=== PATIENT | female | born 1940 | race Caucasian/White ===

== ENCOUNTER 2016-09-14 00:20 | Observation (INO) ==
[2016-09-14] MEDS ORDERED: LORazepam 1 MG TABLET PO ONE (01:17)
[2016-09-14] MEDS ORDERED: NITROFURANTOIN SR 100 MG CAPSULE PO ONE (01:19)
[2016-09-14 02:15] LABS: Basophils # (Auto) 0 K/mcL (0.0-0.3); Basophils % (Auto) 0.4 % (0.0-2.0); Eosinophils # (Auto) 0.1 K/mcL (0.0-0.7); Eosinophils % (Auto) 0.9 % (0.0-7.0); Lymphocytes # (Auto) 2.2 K/mcL (1.5-4.8); Lymphocytes % (Auto) 21.6 % (15.5-49.0); Mean Cell Volume 89.8 fL (80.0-100.0); Mean Corpuscular HGB Conc 32.2 g/dL (31.0-36.0); Monocytes # (Auto) 0.7 K/mcL (0.1-0.9); Monocytes % (Auto) 7.1 % (1.0-12.0); Platelet Count 280 K/mcL (140-440); RBC 4.88 M/mcL (4.00-5.20); Red Cell Distribution Width 14.2 % (11.5-14.5)
[2016-09-14 02:48] LABS: ALT/SGPT 32 U/l (0-40); Albumin/Globulin Ratio 1.3 (1.0-2.3); Alkaline Phosphatase 65 U/L (39-117); Blood Urea Nitrogen 23 mg/dl (8-23)
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
[2016-09-14] MEDS ORDERED: 0.9 % SODIUM CHLORIDE 1,000 ML IV ONE (03:02)
[2016-09-14] MEDS ORDERED: cefTRIAXone 1 GM in DEXTROSE 5% IN WATER 50 ML IV ONE (03:03)
[2016-09-14 03:07] LABS: Vitamin B12 266.6 pg/ml (243-894)
[2016-09-14] MEDS ORDERED: cefTRIAXone 1 GM in DEXTROSE 5% IN WATER 50 ML IV SCH (03:15)
[2016-09-14] MEDS ORDERED: IOPAMIDOL 100 ML BOTTLE IV ONE (03:55)
[2016-09-14 04:10] LABS: Appearance,Urine HAZY; Bacteria,Urine 0 /hpf (0); Bilirubin,Urine NEG (NEG); Color,Urine YELLOW; Glucose,Urine (UA) NEGATIVE (NEG); Leukocyte Esterase,Urine 25 /uL (NEG); Mucus,Urine MANY /hpf (0); Nitrate,Urine NEG (NEG); Protein,Urine 30 mg/dL (NEG); Urine Blood 0.03 mg/dL (<0.03); Urine Hyaline Cast 1 /lpf (0-2); Urine RBC 2 /hpf (0-1); Urine Squamous Epithelial Cell 7 /hpf (0-4); Urine Transitional Epi Cells < 1 /hpf (0-2); Urine WBC 4 /hpf (0-4); Urobilinogen,Urine NEG (NEG)
[2016-09-14] MEDS: 0.9 % SODIUM CHLORIDE 1,000 ML IV SCH ×5 (04:55→16:47)
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
[2016-09-14] MEDS: LORazepam 2 MG/ML VIAL IV PRN (18:14)
[2016-09-14] MEDS ORDERED: HALOPERIDOL LACTATE 5 MG/ML VIAL IV PRN (18:48)
[2016-09-14] MEDS ORDERED: HALOPERIDOL LACTATE 5 MG/ML VIAL IM ONE (19:11)
[2016-09-14] MEDS ORDERED: HALOPERIDOL LACTATE 5 MG/ML VIAL ONE (19:22)
[2016-09-14] MEDS: HALOPERIDOL LACTATE 5 MG/ML VIAL ONE ×2 (19:29→20:51)
[2016-09-14] MEDS: OLANZapine 5 MG TABLET PO SCH (22:59)
[2016-09-15] MEDS: OLANZapine 5 MG TABLET PO SCH ×2 (08:37→21:06)
[2016-09-15] MEDS: 0.9 % SODIUM CHLORIDE 1,000 ML IV SCH ×4 (09:02→18:49)
[2016-09-15] MEDS: cefTRIAXone 1 GM in DEXTROSE 5% IN WATER 50 ML IV SCH (09:29)
--- NOTE | 2016-09-15 09:48 | Internal Med Progress Note ---
Medical - PN: Subj Patient information: Note initiated : 09/15/16 at 9:46 am Service Date, if different from initiated Date: [] Patient: Kerrie Randolph 76 y/o F admitted on 09/14/16 for Altered Mental status, UTI, Dehydration. Chief Complaint: [] Interval history: 09/14-patient admitted with dementia induced psychosis/agitation requiring antipsychotics. Admitted as observation as family unable to take care of patient. Significant episodes of agitated psychosis and violent behavior overnight requiring haloperidol. 09/15-patient alert oriented and very tearful about events last night. Family at bedside. Discussed treatment plan and oral antipsychotic and monitoring for additional 24 hours. Family and patient agreeable plan. The patient does not respond to conventional antipsychotics, she will require psychiatrist evaluation. - Constitutional Vitals: Vital Signs Temp Pulse Resp BP Pulse Ox 98.9 F 99 H 16 144/86 96 09/15/16 07:35 09/15/16 07:35 09/15/16 07:35 09/15/16 07:35 09/15/16 07:35 Period Temp Pulse Resp BP Sys/Shirley Pulse Ox Last 24 Hr 97.3 F-98.9 F 89-99 16-18 134-151/78-88 95-96 Intake and Output 09/14/16 09/15/16 09/15/16 21:59 05:59 13:59 Intake Total 1420 / 1420 Output Total 1025 / 1025 625 / 625 Balance 395 / 395 -625 / -625 Weight 172 lb Intake & Output: Intake & Output 09/14/16 09/15/16 09/15/16 21:59 05:59 13:59 Intake Total 1420 / 1420 Output Total 1025 / 1025 625 / 625 Balance 395 / 395 -625 / -625 Weight 172 lb Intake: IV 1000 / 1000 Sodium Chloride 0.9% 1, 1000 / 1000 000 ml @ 150 mls/hr IV . Q6H40M [facility] Rx#:[id number] Oral 420 / 420 Output: Void Amount 1025 / 1025 625 / 625 General appearance: no acute distress Exam: alertNo anxiety nonlabored breathing Nondistended abdomen Medical - PN: Obj Da - Labs CBC & Chem 7: 09/14/16 01:30 09/14/16 01:30 Meds: Medications Haloperidol Lactate (Haldol) 0 mg IV Q4HP PRN PRN Reason: ANXIETY/SEDATION Sodium Chloride (Sodium Chloride 0.9%) 1,000 mls @ 150 mls/hr IV .Q6H40M [facility] Last Admin: 09/15/16 09:02 Dose: 150 mls/hr Ceftriaxone Sodium 1 gm/ (Dextrose) 50 mls @ 100 mls/hr IV DAILY [facility] Last Admin: 09/15/16 09:29 Dose: 100 mls/hr Lorazepam (Ativan) 1 mg IV Q2-4HP PRN PRN Reason: Agitation Last Admin: 09/14/16 18:14 Dose: 1 mg Olanzapine (Zyprexa) 5 mg PO HS [facility] Last Admin: 09/15/16 08:37 Dose: 5 mg Medical - PN: A/P - Time Spent With Patient Total time spent is greater than 50% in coordination of care (as documented) at patient's floor/unit and/or counseling patient: 15 - 24 minutes (1) Psychosis Status: Acute Assessment and plan: * psychosis- Secondary to underlying dementia with hallucinations and agitation. Responding well to antipsychotics including Zyprexa. Continue observation Plan * Conventional antipsychotics * Monitor for 24 hours * if not responding will need psychiatrist consult Current Visit: Yes Medical - PN: Qual - VTE Deep Vein Thrombosis/Pulmonary Embolism Present on Admission: No
--- NOTE | 2016-09-15 12:33 | Cat Scan Report ---
History: Altered mental status with Increased confusion and loss of coordination Findings: The brain was imaged before and after intravenous nonionic contrast. There is mild cerebral atrophy, most apparent in the frontal lobes. There is no evidence of mass, hemorrhage, infarct or abnormal enhancing lesion. The ventricles are normal in size allowing for the atrophy. There is no abnormal extra-axial fluid collection. There are few scattered calcified plaques in the cavernous portions of both internal carotids. The mastoids are clear. Impression: Normal exam for patient's age Interpreted and Authenticated by: Cristiano Aleman 09/15/16
[2016-09-15] MEDS: OLANZapine 2.5 MG TABLET PO ONE ×2 (20:39→21:59)
[2016-09-15] MEDS: LORazepam 2 MG/ML VIAL IV PRN (20:46)
[2016-09-15] MEDS ORDERED: HALOPERIDOL LACTATE 5 MG/ML VIAL IM ONE (21:05)
[2016-09-16] MEDS: 0.9 % SODIUM CHLORIDE 1,000 ML IV SCH ×4 (06:01→22:29)
--- NOTE | 2016-09-16 09:21 | Internal Med Progress Note ---
Medical - PN: Subj Patient information: Note initiated : 09/16/16 at 9:18 am Service Date, if different from initiated Date: [] Patient: Kerrie Randolph 76 y/o F admitted on 09/14/16 for Altered Mental Status, UTI, Dehydration. Chief Complaint: [] Interval history: 09/14-patient admitted with dementia induced psychosis/agitation requiring antipsychotics. Admitted as observation as family unable to take care of patient. Significant episodes of agitated psychosis and violent behavior overnight requiring haloperidol. 09/15-patient alert oriented and very tearful about events last night. Family at bedside. Discussed treatment plan and oral antipsychotic and monitoring for additional 24 hours. Family and patient agreeable plan. The patient does not respond to conventional antipsychotics, she will require psychiatrist evaluation. 09/16-Significant sundowning/agitation and violent behavior requiring Haldol. however this morning patient is pleasant and appropriate. Very tearful realizing how she acted last evening. She is very concerned about her family and her behavior visit she has no control. case management arranging discharge coordination to psych facility including [facility] consult - Constitutional Vitals: Vital Signs Temp Pulse Resp BP Pulse Ox 98.6 F 83 20 186/79 98 09/16/16 07:36 09/16/16 07:36 09/16/16 07:36 09/16/16 07:36 09/16/16 07:36 Period Temp Pulse Resp BP Sys/Shirley Pulse Ox Last 24 Hr 97.6 F-98.8 F 80-88 16-24 158-186/79-90 95-98 Intake and Output 09/15/16 09/16/16 09/16/16 21:59 05:59 13:59 Intake Total 1050 / 1050 100 / 100 Output Total 200 / 200 150 / 150 150 / 150 Balance 850 / 850 -50 / -50 -150 / -150 Weight 172 lb 8 oz Intake & Output: Intake & Output 09/15/16 09/16/16 09/16/16 21:59 05:59 13:59 Intake Total 1050 / 1050 100 / 100 Output Total 200 / 200 150 / 150 150 / 150 Balance 850 / 850 -50 / -50 -150 / -150 Weight 172 lb 8 oz Intake: IV 1000 / 1000 Sodium Chloride 0.9% 1, 1000 / 1000 000 ml @ 150 mls/hr IV . Q6H40M [facility] Rx#:[id number] Oral 50 / 50 100 / 100 Output: Void Amount 200 / 200 150 / 150 150 / 150 Other: Meal Dinner Percent of Meal Consumed 5 Feeding Ability Assist with Tray Set Up # Voids 1 1 # Bowel Movements 1 Medical - PN: Obj Da - Labs CBC & Chem 7: 09/14/16 01:30 09/14/16 01:30 Meds: Medications Haloperidol Lactate (Haldol) 0 mg IV Q4HP PRN PRN Reason: ANXIETY/SEDATION Sodium Chloride (Sodium Chloride 0.9%) 1,000 mls @ 150 mls/hr IV .Q6H40M [facility] Last Admin: 09/16/16 06:01 Dose: Not Given Ceftriaxone Sodium 1 gm/ (Dextrose) 50 mls @ 100 mls/hr IV DAILY [facility] Last Admin: 09/15/16 09:29 Dose: 100 mls/hr Lorazepam (Ativan) 1 mg IV Q2-4HP PRN PRN Reason: Agitation Last Admin: 09/15/16 20:46 Dose: 1 mg Olanzapine (Zyprexa) 5 mg PO HS [facility] Last Admin: 09/15/16 21:06 Dose: Not Given Medical - PN: A/P - Time Spent With Patient Total time spent is greater than 50% in coordination of care (as documented) at patient's floor/unit and/or counseling patient: 15 - 24 minutes (1) Psychosis Status: Acute Assessment and plan: * 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 on observation. Case management coordinating psych facility transfer Plan * continue antipsychotics * discharge planning per case management Current Visit: Yes Medical - PN: Qual - VTE Deep Vein Thrombosis/Pulmonary Embolism Present on Admission: No
[2016-09-16] MEDS: cefTRIAXone 1 GM in DEXTROSE 5% IN WATER 50 ML IV SCH (09:48)
[2016-09-16] MEDS ORDERED: OLANZapine 5 MG TABLET PO SCH (16:00)
[2016-09-16] MEDS: LORazepam 2 MG/ML VIAL IV PRN (21:25)
[2016-09-17] MEDS: 0.9 % SODIUM CHLORIDE 1,000 ML IV SCH (05:56)
[2016-09-17] MEDS: LORazepam 2 MG/ML VIAL IV PRN (06:36)
[2016-09-17] MEDS ORDERED: LORazepam 2 MG/ML VIAL IV PRN (07:06)
[2016-09-17] MEDS ORDERED: QUEtiapine 25 MG TABLET PO SCH (09:00)
--- NOTE | 2016-09-17 10:15 | Internal Med Progress Note ---
Medical - PN: Subj Patient information: Note initiated : 09/17/16 at 10:13 am Service Date, if different from initiated Date: [] Patient: Kerrie Randolph 76 y/o F admitted on 09/14/16 for Altered Mental Status, UTI, Dehydration. Chief Complaint: [] Interval history: 09/14-patient admitted with dementia induced psychosis/agitation requiring antipsychotics. Admitted as observation as family unable to take care of patient. Significant episodes of agitated psychosis and violent behavior overnight requiring haloperidol. 09/15-patient alert oriented and very tearful about events last night. Family at bedside. Discussed treatment plan and oral antipsychotic and monitoring for additional 24 hours. Family and patient agreeable plan. The patient does not respond to conventional antipsychotics, she will require psychiatrist evaluation. 09/16-Significant sundowning/agitation and violent behavior requiring Haldol. however this morning patient is pleasant and appropriate. Very tearful realizing how she acted last evening. She is very concerned about her family and her behavior visit she has no control. case management arranging discharge coordination to psych facility including [facility] psychiatric consult 09/17- case management and coordinating safe discharge planning. Patient continues to experience sundowning with agitation and aggressive behavior requiring antipsychotics. Family at bedside. No overnight events including fever chills except for period of hallucination and anxiety along with aggressive behavior - Constitutional Vitals: Vital Signs Temp Pulse Resp BP Pulse Ox 98.2 F 89 20 151/88 93 09/17/16 02:46 09/17/16 02:46 09/17/16 02:46 09/17/16 02:46 09/17/16 02:46 Period Temp Pulse Resp BP Sys/Shirley Pulse Ox Last 24 Hr 97.7 F-98.7 F 76-89 16-20 144-173/86-109 92-97 Intake and Output 09/16/16 09/17/16 09/17/16 21:59 05:59 13:59 Intake Total 1000 / 1000 1150 / 1150 Output Total 325 / 325 800 / 800 450 / 450 Balance 675 / 675 350 / 350 -450 / -450 Weight 173 lb Intake & Output: Intake & Output 09/16/16 09/17/16 09/17/16 21:59 05:59 13:59 Intake Total 1000 / 1000 1150 / 1150 Output Total 325 / 325 800 / 800 450 / 450 Balance 675 / 675 350 / 350 -450 / -450 Weight 173 lb Intake: IV 1000 / 1000 1000 / 1000 Sodium Chloride 0.9% 1, 1000 / 1000 1000 / 1000 000 ml @ 150 mls/hr IV . Q6H40M [facility] Rx#:[id number] Oral 150 / 150 Output: Void Amount 325 / 325 800 / 800 450 / 450 General appearance: no acute distress Exam: sitting on chair comfortably nonlabored breathing Sedated No agitation Medical - PN: Obj Da - Labs CBC & Chem 7: 09/14/16 01:30 09/14/16 01:30 Meds: Medications Haloperidol Lactate (Haldol) 0 mg IV Q4HP PRN PRN Reason: ANXIETY/SEDATION Sodium Chloride (Sodium Chloride 0.9%) 1,000 mls @ 150 mls/hr IV .Q6H40M [facility] Last Admin: 09/17/16 05:56 Dose: 150 mls/hr Lorazepam (Ativan) 1 - 2 mg IV Q4-6HP PRN PRN Reason: ANXIETY/SEDATION Last Admin: 09/17/16 07:20 Dose: 1 mg Olanzapine (Zyprexa) 5 mg PO DAILY@1600 [facility] Last Admin: 09/16/16 16:34 Dose: 5 mg Quetiapine Fumarate (Seroquel) 25 mg PO DAILY [facility] Last Admin: 09/17/16 10:07 Dose: 25 mg Medical - PN: A/P - Time Spent With Patient Total time spent is greater than 50% in coordination of care (as documented) at patient's floor/unit and/or counseling patient: 15 - 24 minutes (1) Psychosis Status: Acute Assessment and plan: * 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 case management coordinating safe discharge plan Plan * continue antipsychotics * discharge planning per case management Current Visit: Yes Medical - PN: Qual - VTE Deep Vein Thrombosis/Pulmonary Embolism Present on Admission: No
[2016-09-17] MEDS ORDERED: HALOPERIDOL LACTATE 5 MG/ML VIAL IM ONE (15:05)
[2016-09-17] MEDS: OLANZapine 5 MG TABLET PO SCH ×2 (15:11)
[2016-09-17 19:02] LABS: Appearance,Urine CLEAR; Bilirubin,Urine NEG (NEG); Color,Urine COLORLESS; Glucose,Urine (UA) NEGATIVE (NEG); Leukocyte Esterase,Urine NEG /uL (NEG); Nitrate,Urine NEG (NEG); Protein,Urine NEG (NEG); Specific Gravity,Urine 1.006 (1.000-1.035); Urine Blood NEG mg/dL (<0.03); Urobilinogen,Urine NEG (NEG)
[2016-09-18] MEDS ORDERED: OLANZapine 5 MG TABLET PO ONE (11:02)
[2016-09-18] MEDS: OLANZapine 5 MG TABLET PO SCH (11:04)
--- NOTE | 2016-09-18 11:06 | Discharge Summary ---
Medical - DS: Prov Patient information: Note initiated : 09/18/16 at 11:02 am Service Date, if different from initiated Date: [] Patient: Kerrie Randolph 76 y/o F admitted on 09/14/16 for Altered Mental Status, UTI, Dehydration. Chief Complaint: [] Date of admission: 09/14/16 03:54 Discharge date: 09/18/16 Primary care physician: [f_Reg Prim Care Provider] Medical - DS: Meds - Discharge Medications Prescriptions: OLANZapine [Zyprexa Zydis] 5 mg PO PRN PRN #14 tab.rapdis PRN Reason: Agitation OLANZapine [Zyprexa] 10 mg PO DAILY@1600 #30 tablet Active and Home Medications: Home Medications OLANZapine [Zyprexa Zydis] 5 mg PO PRN PRN #14 tab.rapdis 09/18/16 [Rx Last Taken Unknown] OLANZapine [Zyprexa] 10 mg PO DAILY@1600 #30 tablet 09/18/16 [Rx Last Taken Unknown] Medical - DS: Hosp Hospital course: DISCHARGE DIAGNOSIS * 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 significant improvement. Patient discharging home on Zyprexa 10 mg daily along with 5 mg oral dissolvable as needed. BRIEF HOSPITAL COURSE Mrs. Randolph is a 76 year old female with advanced dementia induced hallucinosis/ psychosis 09/14-patient admitted with dementia induced psychosis/agitation requiring antipsychotics. Admitted as observation as family unable to take care of patient. Significant episodes of agitated psychosis and violent behavior overnight requiring haloperidol. 09/15- Patient alert oriented and very tearful about events last night. Family at bedside. Discussed treatment plan and oral antipsychotic and monitoring for additional 24 hours. Family and patient agreeable plan. The patient does not respond to conventional antipsychotics, she will require psychiatrist evaluation. 09/16-Significant sundowning/agitation and violent behavior requiring Haldol. however this morning patient is pleasant and appropriate. Very tearful realizing how she acted last evening. She is very concerned about her family and her behavior visit she has no control. case management arranging discharge coordination to psych facility including [facility] consult 09/17- Case management and coordinating safe discharge planning. Patient continues to experience sundowning with agitation and aggressive behavior requiring antipsychotics. Family at bedside. No overnight events including fever chills except for period of hallucination and anxiety along with aggressive behavior 09/18- Case discussed with Dr. Bharath Poe [facility] for management of dementia induced psychosis. He recommended Zyprexa 10 mg once a day along with dissolvable Zyprexa 5 mg as needed. Discharge diagnosis: . - Time Spent with Patient Total time spent providing and/or coordinating discharge services: Greater than 30 minutes Medical - DS: Exam - Constitutional Vitals: Vital Signs Temp Pulse Resp BP BP Pulse Ox 09/18/16 07:16 99.0 F 09/18/16 06:41 100.2 F H 20 165/96 92 09/18/16 04:27 110/62 09/18/16 04:04 70 91/54 92/60 94 09/18/16 03:40 98.3 F 95 H 18 152/86 94 09/17/16 16:00 98.4 F 09/17/16 15:30 100.2 F H Intake and Output 09/17/16 09/18/16 09/18/16 21:59 05:59 13:59 Intake Total 100 / 100 240 / 240 Output Total 901 / 901 676 / 676 200 / 200 Balance -901 / -901 -576 / -576 40 / 40 Intake: Oral 100 / 100 240 / 240 Output: Void Amount 900 / 900 675 / 675 200 / 200 # of times incontinent of / 1 / urine Other: Meal Breakfast Percent of Meal Consumed 100% Feeding Ability Assist with Tray Set Up # Voids 1 1 Weight 167 lb Medical - DS: Data Labs on day of discharge: Labs from last 24 hours 09/17/16 16:46 Urine Color Colorless Urine Appearance Clear Urine pH 6.0 Ur Specific [place] 1.006 Urine Protein Neg Urine Glucose (UA) Negative Urine Ketones 20 A Urine Occult Blood Neg Urine Nitrate Neg Urine Bilirubin Neg Urine Urobilinogen Neg Ur Leukocyte Esterase Neg Ur Culture Indicated? No Medical - DS: A/P - Patient/Caregiver Discharge Instructions Activity: increase activity as tolerated Diet: Regular Diet Additional Instructions: use 10 mg Zyprexa daily use 5 mg Zydis daily as needed for episodes of psychosis/agitation Reviewed the risk and side effect profile including cardiac dysrhythmias, dystonia and other extrapyramidal side effects with family. However this time benefits outweigh the risk given profound agitation and violent behavior risking patient's own life and risk of injuries to others. Also the need for law enforcement intervention to combat aggressive behavior. Prescriptions: OLANZapine [Zyprexa Zydis] 5 mg PO PRN PRN #14 tab.rapdis PRN Reason: Agitation OLANZapine [Zyprexa] 10 mg PO DAILY@1600 #30 tablet - Problem Maintenance (1) Psychosis Status: Acute - Follow up Plan Follow up with: Mary Gonzalez ARNP [Nurse Practitioner] - 09/23/16 11:20 am (Please check in at 11:00 am for a 11:20 appointment. Bring your photo ID and insurance cards.) Disposition: Home, Self-Care Prognosis: Undetermined Rehab Potential: Undetermined I certify that the patient requires SNF services: Yes (none available) Overall status at discharge: patient is progressing back to baseline Medical - DS: Qual - VTE Deep Vein Thrombosis/Pulmonary Embolism Present on Admission: No
[2016-09-18] MEDS ORDERED: PNEUMOCOCCAL 23-VAL P-SAC VAC 0.5 ML VIAL IM ONE (11:45)
== END 2016-09-18 11:50 | disposition home or self-care (01) ==
LOC: MEDSUR 00:20 → ED 00:20 → MEDSUR 04:02
PROVIDERS: ADMIT Internal Medicine; ATTEND Internal Medicine

== ENCOUNTER 2016-10-14 17:24 | Observation (INO) ==
--- NOTE | 2016-10-14 18:01 | Emergency Department Note ---
Weakness HPI - General Chief complaint: Weakness Stated complaint: Weakness Time Seen by Provider: 10/14/16 17:48 Source: family Mode of arrival: wheelchair Limitations: altered mental status - History of Present Illness HPI Narrative: [age]-year-old female who was admitted on 09/14 dementia and psychosis. Was put on Zyprexa. [place] been at a cabin for 5 days she has not been eating and drinking well is running a low-grade temperature 100.4 apparently she has a UTI and is being treated on Bactrim for this UTI. Is been having increased weakness the past 5 days. She is unable to give us a good history she denies urgency frequency or dysuria denies abdominal pain denies nausea vomiting but unsure how accurate this. Her current temperature is 100.7 - Related Data Previous Rx's Medication Instructions Recorded OLANZapine [Zyprexa Zydis] 5 mg PO PRN PRN #14 tab.rapdis 09/18/16 OLANZapine [Zyprexa] 10 mg PO DAILY@1600 #30 tablet 09/18/16 Allergies Allergy/AdvReac Type Severity Reaction Status Date / Time No Known Drug Allergies Allergy Verified 10/14/16 17:27 Review of Systems All systems ED: reviewed and negative except as stated. Constitutional: Reports: fever, chills Eyes: Denies: eye pain ENT ED: Denies: ear pain Cardiovascular: Denies: chest pain Respiratory: Denies: cough Gastrointestinal: Denies: abdominal pain, nausea, vomiting Genitourinary: Denies: urgency, dysuria Psychiatric: Reports: other (Dementia with psychosis) Endocrine: Reports: fatigue Hematological/Lymphatic: Denies: easy bleeding Allergic/Immunologic: Denies: facial swelling Past Medical History - Past Medical History Medical history: Reports: dementia, other (previous UTI, glaucoma, depression) Surgical history ED: Reports: no surgical history - Social History Alcohol use: Reports: None Drug use: Reports: none Physical Exam - General Limitations: altered mental status (Dementia) General appearance: in no apparent distress - Head Head exam: atraumatic - Eye Eye exam: Present: normal appearance, PERRL - ENT ENT exam: normal exam - Neck Neck exam: Present: normal inspection - Chest Chest inspection: Present: normal inspection - Respiratory Respiratory exam: Present: normal lung sounds bilaterally. Absent: respiratory distress - Cardiovascular Cardiovascular exam: Present: regular rate, normal rhythm - Abdominal Exam Abdominal exam: Present: soft, normal bowel sounds. Absent: distention, tenderness, guarding, rebound - Extremities Exam Extremities exam: Present: normal inspection, full ROM - Back Exam Back exam: Present: normal inspection, full ROM - Neurological Exam Neurological exam: Present: other (Dementia) - Psychiatric Psychiatric exam: Present: flat affect Course Vital Signs Temperature 100.7 F H 10/14/16 17:25 Pulse Rate 102 H 10/14/16 17:25 Respiratory Rate 20 10/14/16 17:25 Blood Pressure 158/85 10/14/16 17:25 Pulse Oximetry (%) 93 10/14/16 17:25 Temperature 99.0 F H 10/18/16 00:00 Pulse Rate 105 H 10/18/16 00:00 Respiratory Rate 18 10/18/16 04:00 Blood Pressure 143/82 10/18/16 00:00 Pulse Oximetry (%) 93 10/18/16 00:00 Weakness - Lab Data Result diagrams: 10/18/16 05:30 10/18/16 05:30 Lab Results 10/14/16 10/14/16 10/14/16 Range/Units 17:50 17:50 17:50 WBC 13.0 H (4.5-11.0) K/mcL RBC 4.85 (4.00-5.20) M/mcL Hgb 14.2 (12.0-15.0) g/dL Hct 43.3 (36.0-48.0) % MCV 89.2 (80.0-100.0) fL MCH 29.3 (26.0-34.0) pg MCHC 32.8 (31.0-36.0) g/dL RDW 14.1 (11.5-14.5) % Plt Count 220 (140-440) K/mcL MPV 8.8 (7.4-10.4) fL Total Counted 100 Seg Neutrophils % 66 (38-78) % Band Neutrophils % Not Reportable Lymphocytes % 26 (15-49) % Monocytes % (Manual) 8 (1-12) % Platelet Estimate Normal (NORMAL) RBC Morphology Normal (NORMAL) VBG Lactic Acid 1.3 (0.5-2.2) mmol/L Sodium 137 (133-145) mmol/L Potassium 3.9 (3.3-5.1) mmol/L Chloride 100 (96-108) mmol/L Carbon Dioxide 18 L (22-30) mmol/L Anion Gap 19.0 H (8-16) BUN 18 (8-23) mg/dl Creatinine 0.8 (0.6-1.1) mg/dl GFR Calculation 72 Glucose 131 H (70-105) mg/dL Calcium 9.4 (8.6-10.4) mg/dl Total Bilirubin 0.5 (0.0-1.0) mg/dL AST 54 H (0-37) U/l ALT 74 H (0-40) U/l Alkaline Phosphatase 129 H (39-117) U/L Total Protein 7.4 (5.9-8.4) gm/dL Albumin 3.4 (3.2-5.2) gm/dL Globulin 4.0 H (2.2-3.7) gm/dL Albumin/Globulin Ratio 0.9 L (1.0-2.3) Procalcitonin (<0.10) ng/mL Urine Color Urine Appearance Urine pH (5.0-9.0) Ur Specific [place] (1.000-1.035) Urine Protein (NEG) mg/dL Urine Glucose (UA) (NEG) mg/dL Urine Ketones (NEG) mg/dL Urine Occult Blood (<0.03) mg/dL Urine Nitrate (NEG) Urine Bilirubin (NEG) mg/dL Urine Urobilinogen (NEG) mg/dL Ur Leukocyte Esterase (NEG) /uL Urine RBC (0-1) /hpf Urine WBC (0-4) /hpf Ur Squamous Epith Cells (0-4) /hpf Urine Bacteria (0) /hpf Urine Mucus (0) /hpf Ur Culture Indicated? 10/14/16 10/14/16 Range/Units 19:20 21:34 WBC (4.5-11.0) K/mcL RBC (4.00-5.20) M/mcL Hgb (12.0-15.0) g/dL Hct (36.0-48.0) % MCV (80.0-100.0) fL MCH (26.0-34.0) pg MCHC (31.0-36.0) g/dL RDW (11.5-14.5) % Plt Count (140-440) K/mcL MPV (7.4-10.4) fL Total Counted Seg Neutrophils % (38-78) % Band Neutrophils % Lymphocytes % (15-49) % Monocytes % (Manual) (1-12) % Platelet Estimate (NORMAL) RBC Morphology (NORMAL) VBG Lactic Acid (0.5-2.2) mmol/L Sodium (133-145) mmol/L Potassium (3.3-5.1) mmol/L Chloride (96-108) mmol/L Carbon Dioxide (22-30) mmol/L Anion Gap (8-16) BUN (8-23) mg/dl Creatinine (0.6-1.1) mg/dl GFR Calculation Glucose (70-105) mg/dL Calcium (8.6-10.4) mg/dl Total Bilirubin (0.0-1.0) mg/dL AST (0-37) U/l ALT (0-40) U/l Alkaline Phosphatase (39-117) U/L Total Protein (5.9-8.4) gm/dL Albumin (3.2-5.2) gm/dL Globulin (2.2-3.7) gm/dL Albumin/Globulin Ratio (1.0-2.3) Procalcitonin 0.06 (<0.10) ng/mL Urine Color [place] Urine Appearance Clear Urine pH 5.0 (5.0-9.0) Ur Specific [place] 1.029 (1.000-1.035) Urine Protein 30 A (NEG) mg/dL Urine Glucose (UA) Negative (NEG) mg/dL Urine Ketones 20 A (NEG) mg/dL Urine Occult Blood Neg (<0.03) mg/dL Urine Nitrate Neg (NEG) Urine Bilirubin Neg (NEG) mg/dL Urine Urobilinogen Neg (NEG) mg/dL Ur Leukocyte Esterase Neg (NEG) /uL Urine RBC 2 H (0-1) /hpf Urine WBC < 1 (0-4) /hpf Ur Squamous Epith Cells < 1 (0-4) /hpf Urine Bacteria 0 (0) /hpf Urine Mucus Few (0) /hpf Ur Culture Indicated? No Disposition Clinical Impression: Weakness Disposition: Xfer As Inpt ([facility]) Condition: Undetermined
[2016-10-14 18:17] LABS: Mean Cell Volume 89.2 fL (80.0-100.0); Mean Corpuscular HGB Conc 32.8 g/dL (31.0-36.0); Mean Corpuscular Hemoglobin 29.3 pg (26.0-34.0); Platelet Count 220 K/mcL (140-440); RBC 4.85 M/mcL (4.00-5.20); Red Cell Distribution Width 14.1 % (11.5-14.5)
[2016-10-14 18:39] LABS: ALT/SGPT 74 U/l (0-40); Albumin 3.4 gm/dL (3.2-5.2); Albumin/Globulin Ratio 0.9 (1.0-2.3); Alkaline Phosphatase 129 U/L (39-117); Blood Urea Nitrogen 18 mg/dl (8-23)
--- NOTE | 2016-10-14 18:48 | XRay Report ---
CLINICAL INFORMATION: Cough COMPARISON: 08/16/2016 FINDINGS: Heart size, mediastinal pulmonary vessels are normal. Lungs are clear. No effusions. IMPRESSION: Negative Interpreted and Authenticated by: Dennis Rubin 10/14/16
[2016-10-14 19:20] LABS: Lymphocytes % 26 % (15-49); Monocytes % (Manual) 8 % (1-12); Platelet Estimate NORMAL (NORMAL); RBC Morphology NORMAL (NORMAL); Segmented Neutrophils % 66 % (38-78)
[2016-10-14 19:51] LABS: Appearance,Urine CLEAR; Bacteria,Urine 0 /hpf (0); Bilirubin,Urine NEG (NEG); Color,Urine AMBER; Glucose,Urine (UA) NEGATIVE (NEG); Leukocyte Esterase,Urine NEG /uL (NEG); Mucus,Urine FEW /hpf (0); Nitrate,Urine NEG (NEG); Protein,Urine 30 mg/dL (NEG); Specific Gravity,Urine 1.029 (1.000-1.035); Urine Blood NEG mg/dL (<0.03); Urine RBC 2 /hpf (0-1); Urine Squamous Epithelial Cell < 1 /hpf (0-4); Urine WBC < 1 /hpf (0-4); Urobilinogen,Urine NEG (NEG)
[2016-10-14] MEDS ORDERED: LEVOFLOXACIN 500 MG/100 ML BAG IV ONE (20:02)
[2016-10-14] MEDS ORDERED: NALOXONE HCL 0.4 MG/ML VIAL IV PRN (22:16)
[2016-10-14] MEDS ORDERED: ONDANSETRON 4 MG/2 ML VIAL IV PRN (22:16)
[2016-10-14] MEDS ORDERED: MAGNESIUM HYDROXIDE 30 ML ORAL.SUSP PO PRN (22:16)
[2016-10-14] MEDS ORDERED: oxyCODONE HCL 5 MG TABLET PO PRN (22:16)
[2016-10-14] MEDS ORDERED: ACETAMINOPHEN 325 MG TABLET PO PRN (22:16)
--- NOTE | 2016-10-14 22:37 | Internal Med History&Physical ---
Medical - H&P: [facility] Patient information: Note initiated : 10/14/16 at 10:28 pm Service Date, if different from initiated Date: [] Patient: Kerrie Randolph 76 y/o F admitted on 10/14/16 for Weakness. Chief Complaint: [] History of present illness: Ms. Randolph is a 76 year old female with h/o advanced dementia, who presents to the ER today brought in by her for failure to thrive, not eating well or drinking well. the patient was admitted last month to this hospital with dementia and psychosis , with UTI, she was started on zyprxa and her psychosis improved, but the patient is very difficult to care for, she wakes up in the middle of the night and usually cannot hold a conversation, her is helping her with her activities of dailyu living. She has not been eating well since discharge, hwoever her food intake declined significantly over last 1 week, therefore the patient was brought to the hospital. The patient answers some questions but is only aoox1, and does not answer questions appropriately History is provided by her . The patient seems pleasant and obeys some commands. the patient was being treated for UTI by her PCP as outpatient In the ER the patient was noted to be febrile with a white count, cxr is negativef, ua is neg, mildly abnl LFT noted, Patient is being admitted to the hospital for further management and eventual placement, as her is unable to take care of her. He was initially interested about palliative care, but at present wants the patient to be full code. ROS unobtainable: due to mental status Medical - H&P: PMH Medical history: Medical History (Last Updated 10/14/16 @ 22:09 by Meche Pulliam) UTI (urinary tract infection) (Acute) Dehydration (Acute) Dementia (Acute) Psychosis (Acute) Pertinent family history: Mother with dementia Social history: lives with , no tobacco no drugs no etoh Medical - H&P: Meds Home Medications Medication Instructions Recorded Confirmed Type OLANZapine [Zyprexa Zydis] 5 mg PO PRN PRN #14 tab.rapdis 09/18/16 10/14/16 Rx OLANZapine [Zyprexa] 10 mg PO DAILY@1600 #30 tablet 09/18/16 10/14/16 Rx Allergies Allergy/AdvReac Type Severity Reaction Status Date / Time No Known Drug Allergies Allergy Verified 10/14/16 17:27 Medical - H&P: Exam - Constitutional Vitals: Temp Pulse Resp BP Pulse Ox 98.6 F 90 20 162/97 93 10/14/16 22:00 10/14/16 22:00 10/14/16 22:00 10/14/16 22:00 10/14/16 22:00 Exam: GENERAL: The patient is a well-developed, well-nourished in no apparent distress. Is alert and oriented x1. VITAL SIGNS: Reviewed and as noted elsewhere. HEENT: Head is normocephalic and atraumatic. Extraocular muscles are intact. Pupils are equal, round, and reactive to light. Nares appeared normal. Mouth appears any without lesions. Mucous membranes are dry. NECK: Normal to inspection, Supple, No lymphadenopathy or thyromegaly. LUNGS: Air entry equal on both sides, no wheezing, crackles or rhonchi noted. No accessory muscles of respiration HEART: Regular rate and rhythm normal, S1 and S2 heard, no Gallop, S3 or Rub Noted, No Gross murmur heard. ABDOMEN: Soft, nontender, and nondistended. Positive bowel sounds. No hepatosplenomegaly was noted. EXTREMITIES: No cyanosis, clubbing, rash, lesions or edema. NEUROLOGIC: Cranial nerves II through XII are grossly intact. Motor and Sensory System Grossly Intact PSYCHIATRIC: inappropriate talk, tangential thought. SKIN: No ulceration or wounds noted, No jaundice, No rash noted. Medical - H&P: Reslt - Labs CBC & Chem 7: 10/14/16 17:50 10/14/16 17:50 Medical - H&P: A/P - Narrative A/P Narrative: a/p Dementia with psychosis: stable on zyprexam UTI: On ROcephin for now, Urine and blood cultures pending. UA is neg Failuire to thrive, ST PT OT eval, patient needs to improve oral intake to have any meaning ful chance of recovery, hopefully she will turn around. Poor prognosis if not able to resume oral intake explained to . Abnl LFt: Abdomen is soft, but will get [facility] liver to r/o GB pathology for her present condition. DVT hep sq Diet regular fall precautions full code.
[2016-10-14] MEDS: DEXTROSE 5%-1/2NS W/20MEQ KCL 1,000 ML IV SCH (23:02)
[2016-10-14] MEDS: 0.9 % SODIUM CHLORIDE 10 ML SYRINGE IV SCH (23:04)
[2016-10-14] MEDS ORDERED: cefTRIAXone 1 GM VIAL ONE (23:11)
[2016-10-14] MEDS: cefTRIAXone 1 GM in DEXTROSE 5% IN WATER 50 ML IV SCH (23:21)
[2016-10-14] MEDS: HEPARIN 5,000 UNIT/ML VIAL SQ SCH (23:28)
[2016-10-15] MEDS: cefTRIAXone 1 GM in DEXTROSE 5% IN WATER 50 ML IV SCH ×2 (01:31→08:41)
[2016-10-15] MEDS: 0.9 % SODIUM CHLORIDE 10 ML SYRINGE IV SCH ×3 (05:21→21:58)
[2016-10-15 06:42] LABS: Basophils # (Auto) 0.1 K/mcL (0.0-0.3); Basophils % (Auto) 0.5 % (0.0-2.0); Eosinophils # (Auto) 0.2 K/mcL (0.0-0.7); Eosinophils % (Auto) 2.1 % (0.0-7.0); Granulocytes % (Auto) 69.6 % (38.0-78.0); Lymphocytes # (Auto) 1.6 K/mcL (1.5-4.8); Lymphocytes % (Auto) 16.5 % (15.5-49.0); Mean Cell Volume 89.2 fL (80.0-100.0); Mean Corpuscular HGB Conc 33.5 g/dL (31.0-36.0); Mean Corpuscular Hemoglobin 29.9 pg (26.0-34.0); Monocytes # (Auto) 1.1 K/mcL (0.1-0.9); Monocytes % (Auto) 11.3 % (1.0-12.0); Platelet Count 187 K/mcL (140-440); RBC 4.21 M/mcL (4.00-5.20)
[2016-10-15 06:58] LABS: ALT/SGPT 63 U/l (0-40); Albumin 2.7 gm/dL (3.2-5.2); Albumin/Globulin Ratio 0.8 (1.0-2.3); Alkaline Phosphatase 112 U/L (39-117); Bilirubin,Direct < 0.2 mg/dL (0.0-0.3); Blood Urea Nitrogen 11 mg/dl (8-23); Gamma Glutamyl Transpeptidase 121 U/L (5-36); Magnesium 1.7 mg/dL (1.6-2.5); Uric Acid 4.2 mg/dL (2.5-8.0)
[2016-10-15] MEDS: HEPARIN 5,000 UNIT/ML VIAL SQ SCH ×2 (08:40→20:41)
--- NOTE | 2016-10-15 09:47 | Internal Med Progress Note ---
Medical - PN: Subj Patient information: Note initiated : 10/15/16 at 9:34 am Service Date, if different from initiated Date: [] Patient: Kerrie Randolph 76 y/o F admitted on 10/14/16 for Weakness. Chief Complaint: [] Interval history: Ms. Randolph is a 76 year old female with h/o advanced dementia, who presents to the ER today brought in by her for failure to thrive, not eating well or drinking well. the patient was admitted last month to this hospital with dementia and psychosis, with UTI, she was started on zyprxa and her psychosis improved, but the patient is very difficult to care for, she wakes up in the middle of the night and usually cannot hold a conversation, her is helping her with her activities of dailyu living. She has not been eating well since discharge, however her food intake declined significantly over last 1 week , therefore the patient was brought to the hospital. The patient answers some questions but is only aoox1, and does not answer questions appropriately History is provided by her . The patient seems pleasant and obeys some commands. the patient was being treated for UTI by her PCP as outpatient In the ER the patient was noted to be febrile with a white count, cxr is negative , ua is neg , mildly abnl LFT noted, Patient is being admitted to the hospital for further management and eventual placement, as her is unable to take care of her. He was initially interested about palliative care, but at present wants the patient to be full code. 10/15: Patient seen examined, sitting comfortably in chair, answers to question, denies any complaints, at bedside. Labs reviewed, wbc improved, lft improved, patient to get [facility] live today OT/ PT and ST eval today, to consider for rehab, no fever since yesterday. Pertinent ROS: unable due to mental status but declines any complaints. - Constitutional Vitals: Vital Signs Temp Pulse Resp BP Pulse Ox 98 F 85 20 134/90 94 10/15/16 06:31 10/15/16 06:53 10/15/16 06:31 10/15/16 06:31 10/15/16 06:53 Period Temp Pulse Resp BP Sys/Shirley Pulse Ox Last 24 Hr 97.8 F-98.6 F 83-90 20-22 134-162/77-97 93-95 Intake and Output 10/14/16 10/15/16 10/15/16 21:59 05:59 13:59 Intake Total 40 / 40 Output Total 650 / 650 600 / 600 Balance -650 / -650 -560 / -560 Weight 167 lb Intake & Output: Intake & Output 10/14/16 10/15/16 10/15/16 21:59 05:59 13:59 Intake Total 40 / 40 Output Total 650 / 650 600 / 600 Balance -650 / -650 -560 / -560 Weight 167 lb Intake: Oral 40 / 40 Output: Urine Catheter Amount 650 / 650 600 / 600 Other: Meal Breakfast Percent of Meal Consumed 5 Feeding Ability Assist with Tray Set Up Exam: Constitutional; Afebrile, cooperative, alert, not in distress. Eyes- No icterus, , No periorbital swelling Ears- Ext ear normal, hearing normal to conversation. Neck- Midline trachea, supple Respiratory system: Air Entry equal on both sides, No crackles or wheezing, no rhonchi. CVS- Rate rhythm regular, S1,S2 heard, no gallop, no rub. Abdomen- Soft nontender abdomen, no organomegaly, no tenderness, no guarding or rigidity, MACHINE SET UP- AOOx1, moving all extremities, no gross focal deficit noted. Psych: obeys commands, answers to question is inappropriate, Medical - PN: Obj Da - Labs CBC & Chem 7: 10/15/16 05:30 10/15/16 05:40 Labs: Abnormal Lab Results 10/15/16 10/15/16 05:40 05:30 [place] # 1.1 H Carbon Dioxide 16 L Glucose 116 H Calcium 8.4 L GGT 121 H AST 49 H ALT 63 H Albumin 2.7 L Albumin/Globulin Ratio 0.8 L Meds: Medications Acetaminophen (Tylenol) 650 mg PO Q6HP PRN PRN Reason: PAIN/FEVER > 101 Heparin Sodium (Porcine) (Heparin) 5,000 unit SQ Q12 [facility] Last Admin: 10/15/16 08:40 Dose: 5,000 unit Ceftriaxone Sodium 1 gm/ (Dextrose) 50 mls @ 100 mls/hr IV Q24H [facility] Last Admin: 10/15/16 08:41 Dose: 100 mls/hr Potassium Chloride/Dextrose/Sod Cl (Dextrose 5%-1/2ns W/20meq Kcl) 1,000 mls @ 84 mls/hr IV .[id number] [facility] Last Admin: 10/14/16 23:02 Dose: 84 mls/hr Magnesium Hydroxide (Milk Of Magnesia) 30 ml PO DAILYP PRN PRN Reason: Constipation Naloxone HCl (Narcan) 0.1 mg IV Q2MIN PRN PRN Reason: Opiate Reversal Olanzapine (Zyprexa) 10 mg PO DAILY@1600 [facility] Olanzapine (Zyprexa) 5 mg PO Q8HP PRN PRN Reason: AGITATION Ondansetron HCl (Zofran) 4 mg IV Q6HP PRN PRN Reason: Nausea And Vomiting Oxycodone HCl (Roxicodone) 5 mg PO Q4HP PRN PRN Reason: Pain Senna (Senokot) 2 tab PO HS [facility] Sodium Chloride (Saline Flush) 10 ml IV Q8 [facility] Last Admin: 10/15/16 05:21 Dose: Not Given Medical - PN: A/P - Time Spent With Patient Total time spent is greater than 50% in coordination of care (as documented) at patient's floor/unit and/or counseling patient: - Narrative A/P Narrative: A/P Dementia with psychosis: stable on zyprexa continue same, UTI: On ROcephin for now, await microbiology Failuire to thrive, ST PT OT eval, Abnl LFt: Tolerating po diet well, await liver usg. DVT hep sq Diet regular fall precautions full code. Medical - PN: Qual - VTE Deep Vein Thrombosis/Pulmonary Embolism Present on Admission: No
[2016-10-15] MEDS: OLANZapine 5 MG TABLET PO PRN (10:20)
[2016-10-15] MEDS: DEXTROSE 5%-1/2NS W/20MEQ KCL 1,000 ML IV SCH ×3 (10:23→23:25)
[2016-10-15] MEDS: OLANZapine 5 MG TABLET PO SCH (17:17)
--- NOTE | 2016-10-15 17:38 | Ultrasound Report ---
CLINICAL INFORMATION: Abnormal liver function tests COMPARISON: None. FINDINGS: The liver is mildly echogenic compatible with fatty change or other global parenchymal process. No focal hepatic lesion. A solitary 370 stone is present in the gallbladder. Common bile is normal - 5 mm. Pancreas is unremarkable. IMPRESSION: 1. Hyperechoic liver most compatible with fatty change or other global parenchymal process. 2. Solitary 3 cm gallstone. A large gallstone does significantly increased risk for future gallbladder carcinoma development. Consider general surgery referral if clinically appropriate Interpreted and Authenticated by: Dennis Rubin 10/15/16
[2016-10-15] MEDS: SENNOSIDES 1 TABLET PO SCH (20:48)
[2016-10-16] MEDS: 0.9 % SODIUM CHLORIDE 10 ML SYRINGE IV SCH ×3 (06:31→22:10)
[2016-10-16 07:27] LABS: Basophils # (Auto) 0 K/mcL (0.0-0.3); Basophils % (Auto) 0.5 % (0.0-2.0); Eosinophils # (Auto) 0.3 K/mcL (0.0-0.7); Eosinophils % (Auto) 3.4 % (0.0-7.0); Granulocytes % (Auto) 61.8 % (38.0-78.0); Lymphocytes # (Auto) 2.3 K/mcL (1.5-4.8); Mean Cell Volume 89.6 fL (80.0-100.0); Mean Corpuscular HGB Conc 33.6 g/dL (31.0-36.0); Mean Corpuscular Hemoglobin 30.1 pg (26.0-34.0); Monocytes # (Auto) 1.1 K/mcL (0.1-0.9); Monocytes % (Auto) 11.3 % (1.0-12.0); Platelet Count 229 K/mcL (140-440); RBC 4.29 M/mcL (4.00-5.20); Red Cell Distribution Width 14.3 % (11.5-14.5)
[2016-10-16 07:54] LABS: ALT/SGPT 61 U/l (0-40); Albumin 3.3 gm/dL (3.2-5.2); Alkaline Phosphatase 118 U/L (39-117); Bilirubin,Direct < 0.2 mg/dL (0.0-0.3); Blood Urea Nitrogen 8 mg/dl (8-23); Gamma Glutamyl Transpeptidase 126 U/L (5-36); Magnesium 1.9 mg/dL (1.6-2.5); Uric Acid 4.1 mg/dL (2.5-8.0)
[2016-10-16] MEDS: cefTRIAXone 1 GM in DEXTROSE 5% IN WATER 50 ML IV SCH (09:46)
[2016-10-16] MEDS: DEXTROSE 5%-1/2NS W/20MEQ KCL 1,000 ML IV SCH ×2 (09:50→22:10)
[2016-10-16] MEDS: HEPARIN 5,000 UNIT/ML VIAL SQ SCH ×2 (11:06→20:46)
--- NOTE | 2016-10-16 11:07 | Internal Med Progress Note ---
Medical - PN: Subj Patient information: Note initiated : 10/16/16 at 11:05 am Service Date, if different from initiated Date: [] Patient: Kerrie Randolph 76 y/o F admitted on 10/14/16 for Weakness. Chief Complaint: [] Interval history: Ms. Randolph is a 76 year old female with h/o advanced dementia, who presents to the ER today brought in by her for failure to thrive, not eating well or drinking well. the patient was admitted last month to this hospital with dementia and psychosis, with UTI, she was started on zyprxa and her psychosis improved, but the patient is very difficult to care for, she wakes up in the middle of the night and usually cannot hold a conversation, her is helping her with her activities of dailyu living. She has not been eating well since discharge, however her food intake declined significantly over last 1 week , therefore the patient was brought to the hospital. The patient answers some questions but is only aoox1, and does not answer questions appropriately History is provided by her . The patient seems pleasant and obeys some commands. the patient was being treated for UTI by her PCP as outpatient In the ER the patient was noted to be febrile with a white count, cxr is negative , ua is neg , mildly abnl LFT noted, Patient is being admitted to the hospital for further management and eventual placement, as her is unable to take care of her. He was initially interested about palliative care, but at present wants the patient to be full code. 10/15: Patient seen examined, sitting comfortably in chair, answers to question, denies any complaints, at bedside. Labs reviewed, wbc improved, lft improved, patient to get [facility] live today OT/ PT and ST eval today, to consider for rehab, no fever since yesterday. 10/16: Pt seen examined, no acute overnight events, tolerating some po diet, no longer febrile, culture are neg for urine and blood so far. Patient does answer questions and denies any acute issues. Her meal consumption so far has been 10- 15 50 %. Labs reviewed, LFT mildly abnl, wbc back to normal. USG liver shows 3cm gall bladder stone. Pt does not endorse any symptoms. PT unable to direct patient towards any meaning ful activity. Pertinent ROS: Denies headache, dizziness Denies chest pain, palpitations Denies cough or shortness of breath Denies abdominal pain, nausea or vomiting. Pt says no to all complaints, not sure if has comprehension. - Constitutional Vitals: Vital Signs Temp Pulse Resp BP Pulse Ox 98.6 F 83 16 124/73 93 10/16/16 07:43 10/16/16 04:00 10/16/16 07:43 10/16/16 07:43 10/16/16 07:43 Period Temp Pulse Resp BP Sys/Shirley Pulse Ox Last 24 Hr 97.8 F-98.6 F 83-97 16-20 124-144/73-86 91-98 Intake and Output 10/15/16 10/16/16 10/16/16 21:59 05:59 13:59 Intake Total 987 / 987 1115 / 1115 Output Total 875 / 875 Balance -875 / -875 987 / 987 1115 / 1115 Weight 167 lb Intake & Output: Intake & Output 10/15/16 10/16/16 10/16/16 21:59 05:59 13:59 Intake Total 987 / 987 1115 / 1115 Output Total 875 / 875 Balance -875 / -875 987 / 987 1115 / 1115 Weight 167 lb Intake: IV 987 / 987 875 / 875 Dextrose 5%-1/2Ns W/20Meq 987 / 987 875 / 875 KCl 1,000 ml @ 84 mls/hr IV .[id number] [facility] Rx#: [id number] Oral 0 / 0 240 / 240 Output: Urine Catheter Amount 700 / 700 Void Amount 175 / 175 Other: Meal Dinner Breakfast Percent of Meal Consumed 25% 50% # Voids 1 Exam: Constitutional; Afebrile, cooperative, alert, not in distress. Eyes- No icterus, , No periorbital swelling Ears- Ext ear normal, hearing normal to conversation. Neck- Midline trachea, supple Respiratory system: Air Entry equal on both sides, No crackles or wheezing, no rhonchi. CVS- Rate rhythm regular, S1,S2 heard, no gallop, no rub. 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 Medical - PN: Obj Da - Labs CBC & Chem 7: 10/16/16 05:07 10/16/16 05:07 Labs: Abnormal Lab Results 10/16/16 10/16/16 10/15/16 05:07 05:07 05:40 [place] # 1.1 H Carbon Dioxide 16 L 16 L Anion Gap 17.0 H Glucose 116 H Calcium 8.4 L GGT 126 H 121 H AST 39 H 49 H ALT 61 H 63 H Alkaline Phosphatase 118 H Albumin 2.7 L Albumin/Globulin Ratio 0.8 L Triglycerides 177 H 10/15/16 05:30 [place] # 1.1 H Carbon Dioxide Anion Gap Glucose Calcium GGT AST ALT Alkaline Phosphatase Albumin Albumin/Globulin Ratio Triglycerides Meds: Medications Acetaminophen (Tylenol) 650 mg PO Q6HP PRN PRN Reason: PAIN/FEVER > 101 Heparin Sodium (Porcine) (Heparin) 5,000 unit SQ Q12 [facility] Last Admin: 10/15/16 20:41 Dose: 5,000 unit Potassium Chloride/Dextrose/Sod Cl (Dextrose 5%-1/2ns W/20meq Kcl) 1,000 mls @ 84 mls/hr IV .[id number] [facility] Last Admin: 10/16/16 09:50 Dose: 84 mls/hr Magnesium Hydroxide (Milk Of Magnesia) 30 ml PO DAILYP PRN PRN Reason: Constipation Naloxone HCl (Narcan) 0.1 mg IV Q2MIN PRN PRN Reason: Opiate Reversal Olanzapine (Zyprexa) 10 mg PO DAILY@1600 [facility] Last Admin: 10/15/16 17:17 Dose: 10 mg Olanzapine (Zyprexa) 5 mg PO Q8HP PRN PRN Reason: AGITATION Last Admin: 10/15/16 10:20 Dose: 5 mg Omeprazole (Prilosec) 20 mg PO ACB [facility] Ondansetron HCl (Zofran) 4 mg IV Q6HP PRN PRN Reason: Nausea And Vomiting Oxycodone HCl (Roxicodone) 5 mg PO Q4HP PRN PRN Reason: Pain Senna (Senokot) 2 tab PO HS [facility] Last Admin: 10/15/16 20:48 Dose: Not Given Sodium Chloride (Saline Flush) 10 ml IV Q8 [facility] Last Admin: 10/16/16 06:31 Dose: Not Given Medical - PN: A/P - Time Spent With Patient Total time spent is greater than 50% in coordination of care (as documented) at patient's floor/unit and/or counseling patient: - Narrative A/P Narrative: A/P Dementia with psychosis: stable on zyprexa continue same, UTI: s/p treatment, cultures neg, d/c rocephin, wbc normal, remains afebrile. Failuire to thrive, : ST recs regular diet, PT unable to work with pt, Pt not eating full shamika, start on PPI Abnl LFt: USG shows large gall stone, patient denies any symptoms, but has dementia and poor oral intake, not sure if Gall bladder dyspepsia is playing any role, I discussed this with Dr Mahoney who has agreed to have a look at the patient. DVT hep sq Diet regular fall precautions full code. Medical - PN: Qual - VTE Deep Vein Thrombosis/Pulmonary Embolism Present on Admission: No
--- NOTE | 2016-10-16 16:46 | General Surgery Consult Note ---
History of Present Illness Patient information: Note initiated : 10/16/16 at 4:42 pm Service Date, if different from initiated Date: [] Patient: Kerrie Randolph 76 y/o F admitted on 10/14/16 for Weakness. Chief Complaint: [] Consult date: 10/16/16 Reason for consult: abdominal pain History of present illness: 76-year-old f with history of dementia and psychosis who is readmitted with elevated white count and history of increasing anorexia and failure to thrive. She has been treated by the hospitalist service and she has no other pathology. Upper abdominal ultrasound was done and it shows large gallstone in the gallbladder. On closer questioning with the family available the patient states that she stopped eating because eating bere abdominal pain. She points to the upper abdomen but is not very specific. Due to her dementia is difficult to determine if she has associated nausea but she does complain of fullness whenever she eats. It is felt that her problem is related to biliary colic and she will benefit from cholecystectomy. I discussed this with her as sons and her and they agree that she should proceed with cholecystectomy. 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 Never tobacco use Never alcohol use Never substance abuse Medications and Allergies Home Medications Medication Instructions Recorded Confirmed Type OLANZapine [Zyprexa Zydis] 5 mg PO PRN PRN #14 tab.rapdis 09/18/16 10/14/16 Rx OLANZapine [Zyprexa] 10 mg PO DAILY@1600 #30 tablet 09/18/16 10/14/16 Rx Allergies Allergy/AdvReac Type Severity Reaction Status Date / Time No Known Drug Allergies Allergy Verified 10/14/16 17:27 Exam Temp Pulse Resp BP Pulse Ox 98 F 83 18 134/87 92 10/16/16 15:14 10/16/16 04:00 10/16/16 15:14 10/16/16 15:14 10/16/16 15:14 - General physical appearance well developed, well nourished, no distress, other (the patient is only oriented to person) - Eyes PERRL, normal ocular movement. negative: icteric - ENT normal pinna, normal nares, normal mucosa, no hearing loss, no congestion - Head Head exam IM: Present: atraumatic, normocephalic - Neck no masses, no bruits, trachea midline, no lymphadectomy, no venous distension - Cardiovascular Cardiovascular exam IM: Present: normal rate and rhythm, RRR, +S1, +S2. Absent : JVD - Respiratory normal expansion, normal respiratory effort, clear to percussion, clear to auscultation - Abdomen Abdomen: Present: soft, non tender, bowel sounds Hernia: Present: none - Integumentary Present: no rash, no growths, no abnormal pigmentation - Neurologic Present: normal coordination, normal sensation - Musculoskeletal Present: other (unsteady gait and sta) - Psychiatric Present: oriented to person, speech is normal, other (moderately severe dementia ) Results - Labs 10/16/16 05:07 10/16/16 05:07 Abnormal lab results 10/16/16 10/16/16 Range/Units 05:07 05:07 [place] # 1.1 H (0.1-0.9) K/mcL Carbon Dioxide 16 L (22-30) mmol/L Anion Gap 17.0 H (8-16) GGT 126 H (5-36) U/L AST 39 H (0-37) U/l ALT 61 H (0-40) U/l Alkaline Phosphatase 118 H (39-117) U/L Triglycerides 177 H (<150) mg/dl Diabetes panel 10/16/16 Range/Units 05:07 Sodium 137 (133-145) mmol/L Potassium 4.3 (3.3-5.1) mmol/L Chloride 104 (96-108) mmol/L Carbon Dioxide 16 L (22-30) mmol/L BUN 8 (8-23) mg/dl Creatinine 0.7 (0.6-1.1) mg/dl Glucose 104 (70-105) mg/dL Calcium 9.1 (8.6-10.4) mg/dl AST 39 H (0-37) U/l ALT 61 H (0-40) U/l Alkaline Phosphatase 118 H (39-117) U/L Total Protein 6.7 (5.9-8.4) gm/dL Albumin 3.3 (3.2-5.2) gm/dL Triglycerides 177 H (<150) mg/dl Calcium panel 10/16/16 Range/Units 05:07 Calcium 9.1 (8.6-10.4) mg/dl Phosphorus 3.1 (2.7-4.5) mg/dL Albumin 3.3 (3.2-5.2) gm/dL Pituitary panel 10/16/16 Range/Units 05:07 Sodium 137 (133-145) mmol/L Potassium 4.3 (3.3-5.1) mmol/L Chloride 104 (96-108) mmol/L Carbon Dioxide 16 L (22-30) mmol/L BUN 8 (8-23) mg/dl Creatinine 0.7 (0.6-1.1) mg/dl Glucose 104 (70-105) mg/dL Calcium 9.1 (8.6-10.4) mg/dl Adrenal panel 10/16/16 Range/Units 05:07 Sodium 137 (133-145) mmol/L Potassium 4.3 (3.3-5.1) mmol/L Chloride 104 (96-108) mmol/L Carbon Dioxide 16 L (22-30) mmol/L BUN 8 (8-23) mg/dl Creatinine 0.7 (0.6-1.1) mg/dl Glucose 104 (70-105) mg/dL Calcium 9.1 (8.6-10.4) mg/dl Total Bilirubin 0.4 (0.0-1.0) mg/dL AST 39 H (0-37) U/l ALT 61 H (0-40) U/l Alkaline Phosphatase 118 H (39-117) U/L Total Protein 6.7 (5.9-8.4) gm/dL Albumin 3.3 (3.2-5.2) gm/dL All other labs normal. Assessment and Plan (1) Cholelithiasis and cholecystitis without obstruction patient's family members were counseled for cholecystectomy and it will be done tomorrow. She has been started on efoxin every 8 hours. Status: Acute (2) Dementia Status: Acute Qualifiers: Dementia type: unspecified type Dementia behavioral disturbance: with behavioral disturbance Qualified Code(s): F03.91 - Unspecified dementia with behavioral disturbance (3) Psychosis Status: Acute
[2016-10-16] MEDS: OLANZapine 5 MG TABLET PO SCH (17:28)
[2016-10-16] MEDS: cefOXitin 2 GM in DEXTROSE 5% IN WATER 50 ML IV SCH ×2 (17:30→22:10)
[2016-10-16] MEDS: SENNOSIDES 1 TABLET PO SCH (20:46)
[2016-10-16] MEDS: OLANZapine 5 MG TABLET PO PRN (22:07)
[2016-10-17] MEDS: 0.9 % SODIUM CHLORIDE 10 ML SYRINGE IV SCH ×2 (05:11→16:30)
[2016-10-17] MEDS: cefOXitin 2 GM in DEXTROSE 5% IN WATER 50 ML IV SCH ×3 (05:11→23:40)
[2016-10-17 06:01] LABS: Basophils # (Auto) 0.1 K/mcL (0.0-0.3); Basophils % (Auto) 0.5 % (0.0-2.0); Eosinophils # (Auto) 0.4 K/mcL (0.0-0.7); Eosinophils % (Auto) 4.3 % (0.0-7.0); Granulocytes % (Auto) 60.5 % (38.0-78.0); Lymphocytes # (Auto) 2.5 K/mcL (1.5-4.8); Lymphocytes % (Auto) 24.4 % (15.5-49.0); Mean Cell Volume 89.6 fL (80.0-100.0); Mean Corpuscular HGB Conc 33.1 g/dL (31.0-36.0); Mean Corpuscular Hemoglobin 29.7 pg (26.0-34.0); Monocytes % (Auto) 10.3 % (1.0-12.0); Platelet Count 283 K/mcL (140-440); RBC 4.38 M/mcL (4.00-5.20)
[2016-10-17] MEDS: OLANZapine 5 MG TABLET PO PRN ×2 (06:40→08:55)
[2016-10-17 06:41] LABS: ALT/SGPT 49 U/l (0-40); Albumin 3.2 gm/dL (3.2-5.2); Albumin/Globulin Ratio 0.9 (1.0-2.3); Alkaline Phosphatase 110 U/L (39-117); Bilirubin,Direct < 0.2 mg/dL (0.0-0.3); Blood Urea Nitrogen 6 mg/dl (8-23); Gamma Glutamyl Transpeptidase 113 U/L (5-36); Magnesium 1.8 mg/dL (1.6-2.5); Uric Acid 4.1 mg/dL (2.5-8.0)
[2016-10-17] MEDS ORDERED: PANTOPRAZOLE 40 MG TABLET PO SCH (07:30)
[2016-10-17] MEDS: HEPARIN 5,000 UNIT/ML VIAL SQ SCH (08:27)
[2016-10-17] MEDS: DEXTROSE 5%-1/2NS W/20MEQ KCL 1,000 ML IV SCH ×3 (10:06→17:04)
--- NOTE | 2016-10-17 10:40 | Internal Med Progress Note ---
Medical - PN: Subj Patient information: Note initiated : 10/17/16 at 10:37 am Service Date, if different from initiated Date: [] Patient: Kerrie Randolph 76 y/o F admitted on 10/14/16 for Weakness. Chief Complaint: [] Interval history: Ms. Randolph is a 76 year old female with h/o advanced dementia, who presents to the ER today brought in by her for failure to thrive, not eating well or drinking well. the patient was admitted last month to this hospital with dementia and psychosis, with UTI, she was started on zyprxa and her psychosis improved, but the patient is very difficult to care for, she wakes up in the middle of the night and usually cannot hold a conversation, her is helping her with her activities of dailyu living. She has not been eating well since discharge, however her food intake declined significantly over last 1 week , therefore the patient was brought to the hospital. The patient answers some questions but is only aoox1, and does not answer questions appropriately History is provided by her . The patient seems pleasant and obeys some commands. the patient was being treated for UTI by her PCP as outpatient In the ER the patient was noted to be febrile with a white count, cxr is negative , ua is neg , mildly abnl LFT noted, Patient is being admitted to the hospital for further management and eventual placement, as her is unable to take care of her. He was initially interested about palliative care, but at present wants the patient to be full code. 10/15: Patient seen examined, sitting comfortably in chair, answers to question, denies any complaints, at bedside. Labs reviewed, wbc improved, lft improved, patient to get [facility] live today OT/ PT and ST eval today, to consider for rehab, no fever since yesterday. 10/16: Pt seen examined, no acute overnight events, tolerating some po diet, no longer febrile, culture are neg for urine and blood so far. Patient does answer questions and denies any acute issues. Her meal consumption so far has been 10- 15 50 %. Labs reviewed, LFT mildly abnl, wbc back to normal. USG liver shows 3cm gall bladder stone. Pt does not endorse any symptoms. PT unable to direct patient towards any meaning ful activity. 10/17 Pt seen examined, no acute overnight issues, she denies any complaints. Patient seen by surgery, the patient did report to the surgeon that she does have abdominal pain when we try to feed her, given her dementia and poor history , its feasible that she may be having abdominal pain due to Gall stone disease which is limiting her intake. She is scheduled for cholecystectomy today. Family in agreement with the plan. Pertinent ROS: demented but denies any complaints Denies headache, dizziness Denies chest pain, palpitations Denies cough or shortness of breath Denies abdominal pain, nausea or vomiting. - Constitutional Vitals: Vital Signs Temp Pulse Resp BP Pulse Ox 98.4 F 88 20 100/72 93 10/17/16 08:00 10/17/16 04:00 10/17/16 08:00 10/17/16 08:00 10/17/16 08:00 Period Temp Pulse Resp BP Sys/Shirley Pulse Ox Last 24 Hr 97.6 F-98.4 F 78-96 16-20 100-150/67-87 92-94 Intake and Output 10/16/16 10/17/16 10/17/16 21:59 05:59 13:59 Intake Total 1170 / 1170 100 / 100 Output Total 750 / 750 650 / 650 75 / 75 Balance 420 / 420 -550 / -550 -75 / -75 Weight 163 lb Intake & Output: Intake & Output 10/16/16 10/17/16 10/17/16 21:59 05:59 13:59 Intake Total 1170 / 1170 100 / 100 Output Total 750 / 750 650 / 650 75 / 75 Balance 420 / 420 -550 / -550 -75 / -75 Weight 163 lb Intake: IV 1050 / 1050 100 / 100 Dextrose 5%-1/2Ns W/20Meq 1000 / 1000 KCl 1,000 ml @ 84 mls/hr IV .[id number] [facility] Rx#: [id number] Mefoxin 2 gm In Dextrose 50 / 50 100 / 100 5% in Water 50 ml @ 100 mls/hr IV Q8H [facility] Rx#: [id number] Oral 120 / 120 0 / 0 Output: Void Amount 750 / 750 650 / 650 75 / 75 Other: # Voids 1 1 Exam: Constitutional; Afebrile, cooperative, alert, not in distress. Eyes- No icterus, , No periorbital swelling Ears- Ext ear normal, hearing normal to conversation. Neck- Midline trachea, supple Respiratory system: Air Entry equal on both sides, No crackles or wheezing, no rhonchi. CVS- Rate rhythm regular, S1,S2 heard, no gallop, no rub. 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 Medical - PN: Obj Da - Labs CBC & Chem 7: 10/17/16 04:19 10/17/16 04:19 Labs: Abnormal Lab Results 10/17/16 10/17/16 10/16/16 04:19 04:19 05:07 [place] # 1.0 H Carbon Dioxide 18 L 16 L Anion Gap 17.0 H BUN 6 L Glucose 128 H Calcium GGT 113 H 126 H AST 39 H ALT 49 H 61 H Alkaline Phosphatase 118 H Albumin Albumin/Globulin Ratio 0.9 L Triglycerides 217 H 177 H 10/16/16 10/15/16 10/15/16 05:07 05:40 05:30 [place] # 1.1 H 1.1 H Carbon Dioxide 16 L Anion Gap BUN Glucose 116 H Calcium 8.4 L GGT 121 H AST 49 H ALT 63 H Alkaline Phosphatase Albumin 2.7 L Albumin/Globulin Ratio 0.8 L Triglycerides Meds: Medications Acetaminophen (Tylenol) 650 mg PO Q6HP PRN PRN Reason: PAIN/FEVER > 101 Last Admin: 10/17/16 09:01 Dose: 650 mg Heparin Sodium (Porcine) (Heparin) 5,000 unit SQ Q12 [facility] Last Admin: 10/17/16 08:27 Dose: Not Given Potassium Chloride/Dextrose/Sod Cl (Dextrose 5%-1/2ns W/20meq Kcl) 1,000 mls @ 84 mls/hr IV .[id number] [facility] Last Admin: 10/17/16 10:06 Dose: Not Given Cefoxitin Sodium 2 gm/ (Dextrose) 50 mls @ 100 mls/hr IV Q8H [facility] Last Infusion: 10/17/16 05:41 Dose: Infused Magnesium Hydroxide (Milk Of Magnesia) 30 ml PO DAILYP PRN PRN Reason: Constipation Naloxone HCl (Narcan) 0.1 mg IV Q2MIN PRN PRN Reason: Opiate Reversal Olanzapine (Zyprexa) 10 mg PO DAILY@1600 [facility] Last Admin: 10/16/16 17:28 Dose: 10 mg Olanzapine (Zyprexa) 5 mg PO Q8HP PRN PRN Reason: AGITATION Last Admin: 10/17/16 08:55 Dose: 5 mg Ondansetron HCl (Zofran) 4 mg IV Q6HP PRN PRN Reason: Nausea And Vomiting Oxycodone HCl (Roxicodone) 5 mg PO Q4HP PRN PRN Reason: Pain Pantoprazole Sodium (Protonix) 40 mg PO QAMAC [facility] Last Admin: 10/17/16 08:27 Dose: Not Given Senna (Senokot) 2 tab PO HS [facility] Last Admin: 10/16/16 20:46 Dose: 2 tab Sodium Chloride (Saline Flush) 10 ml IV Q8 [facility] Last Admin: 10/17/16 05:11 Dose: Not Given Medical - PN: A/P - Time Spent With Patient Total time spent is greater than 50% in coordination of care (as documented) at patient's floor/unit and/or counseling patient: - Narrative A/P Narrative: A/P Dementia with psychosis: stable on zyprexa continue same, she had some outburst overnight,but settled now. UTI: s/p treatment, cultures neg, d/c rocephin, wbc normal, remains afebrile. monitor. Failuire to thrive, : ST recs regular diet, PT unable to work with pt, Pt not eating full shamika, start on PPI, likely poor appetite due to gall stone. Gallstone disease: plan for cholecystetomy today. DVT hep sq Diet regular fall precautions full code. Medical - PN: Qual - VTE Deep Vein Thrombosis/Pulmonary Embolism Present on Admission: No
[2016-10-17] MEDS ORDERED: GLYCOPYRROLATE 0.2 MG/ML VIAL IV ONE (11:45)
[2016-10-17] MEDS ORDERED: ROCURONIUM 10 MG/ML ML IV ONE (11:45)
[2016-10-17] MEDS ORDERED: PROPOFOL 200 MG/20 ML VIAL IV ONE (11:45)
[2016-10-17] MEDS ORDERED: MIDAZOLAM 2 MG/2 ML VIAL IV ONE (11:45)
[2016-10-17] MEDS ORDERED: LIDOCAINE HCL/PF 100 MG/5 ML SYRINGE IV ONE (11:45)
[2016-10-17] MEDS ORDERED: DEXAMETHASONE 10 MG/ML VIAL IV ONE (11:45)
[2016-10-17] MEDS ORDERED: NEOSTIGMINE 1 MG/ML VIAL IV ONE (11:45)
[2016-10-17] MEDS ORDERED: fentaNYL 100 MCG/2 ML VIAL IV ONE (11:45)
[2016-10-17] MEDS ORDERED: ONDANSETRON 4 MG/2 ML VIAL IV ONE (11:45)
[2016-10-17] MEDS ORDERED: PHENYLEPHRINE 10 MG/ML VIAL IV ONE (11:45)
[2016-10-17] MEDS ORDERED: ePHEDrine 50 MG/ML AMPUL IV ONE (11:45)
[2016-10-17] MEDS ORDERED: LORazepam 0.5 MG TABLET PO PRN ×2 (11:53→14:25)
[2016-10-17] MEDS ORDERED: HYDROmorphone 2 MG/ML SYRINGE IV PRN (12:19)
[2016-10-17] MEDS ORDERED: diphenhydrAMINE 50 MG/ML VIAL IV PRN (12:19)
[2016-10-17] MEDS ORDERED: METOPROLOL TARTRATE 5 MG/5 ML VIAL IV PRN (12:19)
[2016-10-17] MEDS ORDERED: NALOXONE HCL 0.4 MG/ML VIAL IV PRN (12:19)
[2016-10-17] MEDS ORDERED: PROMETHAZINE 25 MG/ML VIAL IV PRN (12:19)
[2016-10-17] MEDS ORDERED: BENZOCAINE/MENTHOL 1 LOZENGE PO PRN (12:19)
[2016-10-17] MEDS ORDERED: fentaNYL 100 MCG/2 ML VIAL IV PRN (12:19)
[2016-10-17] MEDS ORDERED: METHOCARBAMOL 1,000 MG/10 ML VIAL IV PRN (12:19)
[2016-10-17] MEDS ORDERED: FLUMAZENIL 0.1 MG/ML ML IV PRN (12:19)
[2016-10-17] MEDS ORDERED: ePHEDrine 50 MG/ML AMPUL IV PRN (12:19)
[2016-10-17] MEDS ORDERED: IPRATROPIUM/ALBUTEROL 3 ML AMPUL.NEB NEB PRN (12:19)
[2016-10-17] MEDS ORDERED: ONDANSETRON 4 MG/2 ML VIAL IV PRN ×2 (12:19→14:25)
[2016-10-17] MEDS ORDERED: ATROPINE SULFATE 0.4 MG/ML VIAL IV PRN (12:19)
[2016-10-17] MEDS ORDERED: MEPERIDINE 25 MG/ML SYRINGE IV PRN (12:19)
[2016-10-17] MEDS ORDERED: LACTATED RINGERS 1,000 ML IV SCH (12:30)
[2016-10-17] MEDS ORDERED: cefOXitin 2 GM in DEXTROSE 5% IN WATER 50 ML IV SCH (13:00)
--- NOTE | 2016-10-17 13:05 | Brief Operative Note ---
Date of procedure: 10/17/16 Pre-op diagnosis: cholelithiasis with cholecystitis Post-op diagnosis: same Procedure: LAPAROSCOPIC CHOLECYSTECTOMY Grafts/Implants: No Anesthesia: GETA Findings: INFLAMED GALLBLADDER WITH LARGE STONES Complications: none Surgeon: Angie Mahoney Estimated blood loss (cc): 10 Specimens Removed/Pathology: other (GALLBLADDER) Condition: stable Disposition: PACU
[2016-10-17] MEDS ORDERED: MAGNESIUM HYDROXIDE 30 ML ORAL.SUSP PO PRN (14:25)
[2016-10-17] MEDS ORDERED: ACETAMINOPHEN 325 MG TABLET PO PRN (14:25)
[2016-10-17] MEDS: ACETAMINOPHEN 1,000 MG/100 ML BOTTLE IV PRN (15:35)
[2016-10-17] MEDS ORDERED: OLANZapine 5 MG TABLET PO SCH ×2 (16:00)
[2016-10-17] MEDS ORDERED: SENNOSIDES 1 TABLET PO SCH (21:00)
[2016-10-18] MEDS: ACETAMINOPHEN 1,000 MG/100 ML BOTTLE IV PRN (00:45)
[2016-10-18] MEDS: DEXTROSE 5%-1/2NS W/20MEQ KCL 1,000 ML IV SCH ×2 (05:04→10:00)
[2016-10-18] MEDS: cefOXitin 2 GM in DEXTROSE 5% IN WATER 50 ML IV SCH ×2 (05:26→12:02)
[2016-10-18 06:29] LABS: Basophils # (Auto) 0 K/mcL (0.0-0.3); Basophils % (Auto) 0 % (0.0-2.0); Eosinophils # (Auto) 0 K/mcL (0.0-0.7); Eosinophils % (Auto) 0 % (0.0-7.0); Granulocytes % (Auto) 86.5 % (38.0-78.0); Lymphocytes # (Auto) 1.1 K/mcL (1.5-4.8); Lymphocytes % (Auto) 8.8 % (15.5-49.0); Mean Cell Volume 88.9 fL (80.0-100.0); Mean Corpuscular HGB Conc 33.9 g/dL (31.0-36.0); Mean Corpuscular Hemoglobin 30.1 pg (26.0-34.0); Monocytes # (Auto) 0.6 K/mcL (0.1-0.9); Monocytes % (Auto) 4.7 % (1.0-12.0); Platelet Count 289 K/mcL (140-440); RBC 4.04 M/mcL (4.00-5.20); Red Cell Distribution Width 13.8 % (11.5-14.5)
[2016-10-18 06:59] LABS: ALT/SGPT 37 U/l (0-40); Albumin/Globulin Ratio 0.9 (1.0-2.3); Alkaline Phosphatase 97 U/L (39-117); Bilirubin,Direct < 0.2 mg/dL (0.0-0.3); Blood Urea Nitrogen 5 mg/dl (8-23); Gamma Glutamyl Transpeptidase 94 U/L (5-36); Magnesium 1.7 mg/dL (1.6-2.5); Uric Acid 4.2 mg/dL (2.5-8.0)
[2016-10-18] MEDS ORDERED: PANTOPRAZOLE 40 MG TABLET PO SCH (07:30)
--- NOTE | 2016-10-18 09:56 | Internal Med Progress Note ---
Medical - PN: Subj Patient information: Note initiated : 10/18/16 at 9:50 am Service Date, if different from initiated Date: [] Patient: Kerrie Randolph 76 y/o F admitted on 10/14/16 for Weakness. Chief Complaint: [] Interval history: Ms. Randolph is a 76 year old female with h/o advanced dementia, who presents to the ER today brought in by her for failure to thrive, not eating well or drinking well. the patient was admitted last month to this hospital with dementia and psychosis, with UTI, she was started on zyprxa and her psychosis improved, but the patient is very difficult to care for, she wakes up in the middle of the night and usually cannot hold a conversation, her is helping her with her activities of dailyu living. She has not been eating well since discharge, however her food intake declined significantly over last 1 week , therefore the patient was brought to the hospital. The patient answers some questions but is only aoox1, and does not answer questions appropriately History is provided by her . The patient seems pleasant and obeys some commands. the patient was being treated for UTI by her PCP as outpatient In the ER the patient was noted to be febrile with a white count, cxr is negative , ua is neg , mildly abnl LFT noted, Patient is being admitted to the hospital for further management and eventual placement, as her is unable to take care of her. He was initially interested about palliative care, but at present wants the patient to be full code. 10/15: Patient seen examined, sitting comfortably in chair, answers to question, denies any complaints, at bedside. Labs reviewed, wbc improved, lft improved, patient to get USG live today OT/ PT and ST eval today, to consider for rehab, no fever since yesterday. 10/16: Pt seen examined, no acute overnight events, tolerating some po diet, no longer febrile, culture are neg for urine and blood so far. Patient does answer questions and denies any acute issues. Her meal consumption so far has been 10- 15 50 %. Labs reviewed, LFT mildly abnl, wbc back to normal. USG liver shows 3cm gall bladder stone. Pt does not endorse any symptoms. PT unable to direct patient towards any meaning ful activity. 10/17 Pt seen examined, no acute overnight issues, she denies any complaints. Patient seen by surgery, the patient did report to the surgeon that she does have abdominal pain when we try to feed her, given her dementia and poor history , its feasible that she may be having abdominal pain due to Gall stone disease which is limiting her intake. She is scheduled for cholecystectomy today. Family in agreement with the plan. 10/18 Pt seen examined, lying in bed comfortably, trying to pet her bedsheet as it were her puppy. She denies any pain, or any acute complaints events from yesterday noted. There was concern regarding burn on the ant abdominal wall due to use of a hot pack yesterday, this am the skin looks back to normal with only few areas of erythema. The patient underwent a successful cholecystectomy yesterday. Pertinent ROS: unable to do ros, but pt denies chest pain, sob, headache dizziness. abdominal pain she says no to every question. - Constitutional Vitals: Vital Signs Temp Pulse Resp BP Pulse Ox 98.4 F 105 H 20 117/74 97 10/18/16 07:34 10/18/16 00:00 10/18/16 07:34 10/18/16 07:34 10/18/16 07:34 Period Temp Pulse Resp BP Sys/Shirley Pulse Ox Last 24 Hr 96.6 F-99.0 F 73-105 12-93 91-149/46-90 91-100 Intake and Output 10/17/16 10/18/16 10/18/16 21:59 05:59 13:59 Intake Total 585 / 585 630 / 630 100 / 100 Output Total 528 / 528 1100 / 1100 325 / 325 Balance 57 / 57 -470 / -470 -225 / -225 Weight 163 lb Intake & Output: Intake & Output 10/17/16 10/18/16 10/18/16 21:59 05:59 13:59 Intake Total 585 / 585 630 / 630 100 / 100 Output Total 528 / 528 1100 / 1100 325 / 325 Balance 57 / 57 -470 / -470 -225 / -225 Weight 163 lb Intake: IV 485 / 485 150 / 150 Dextrose 5%-1/2Ns W/20Meq 335 / 335 0 / 0 KCl 1,000 ml @ 84 mls/hr IV .[id number] [facility] Rx#: [id number] Mefoxin 2 gm In Dextrose 50 / 50 50 / 50 5% in Water 50 ml @ 100 mls/hr IV Q6H [facility] Rx#: [id number] Oral 100 / 100 480 / 480 100 / 100 Output: Urine Catheter Amount 25 / 25 Void Amount 500 / 500 1100 / 1100 325 / 325 # of times incontinent of 3 / 3 urine Other: Meal 4 oz jello, few sips of chicken broth # Voids 75 1 Exam: Constitutional; Afebrile, cooperative, alert, not in distress. Eyes- No icterus, , No periorbital swelling Ears- Ext ear normal, hearing normal to conversation. Neck- Midline trachea, supple Respiratory system: Air Entry equal on both sides, No crackles or wheezing, no rhonchi. CVS- Rate rhythm regular, S1,S2 heard, no gallop, no rub. 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 Medical - PN: Obj Da - Labs CBC & Chem 7: 10/18/16 05:30 10/18/16 05:30 Labs: Abnormal Lab Results 10/18/16 10/18/16 10/17/16 05:30 05:30 04:19 WBC 12.6 H Hct 35.9 L Gran % 86.5 H Lymph % (Auto) 8.8 L Gran # 10.9 H Lymph # 1.1 L Todd # Carbon Dioxide 21 L 18 L Anion Gap BUN 5 L 6 L Glucose 174 H 128 H GGT 94 H 113 H AST ALT 49 H Alkaline Phosphatase Albumin 3.0 L Albumin/Globulin Ratio 0.9 L 0.9 L Triglycerides 217 H 10/17/16 10/16/16 10/16/16 04:19 05:07 05:07 WBC Hct Gran % Lymph % (Auto) Gran # Lymph # Todd # 1.0 H 1.1 H Carbon Dioxide 16 L Anion Gap 17.0 H BUN Glucose GGT 126 H AST 39 H ALT 61 H Alkaline Phosphatase 118 H Albumin Albumin/Globulin Ratio Triglycerides 177 H Meds: Medications Acetaminophen (Tylenol) 650 mg PO Q6HP PRN PRN Reason: PAIN/FEVER > 101 Acetaminophen (Ofirmev) 1,000 mg in 100 mls @ 200 mls/hr IV Q6HP PRN PRN Reason: PAIN/FEVER > 101 Last Infusion: 10/18/16 01:15 Dose: Infused Cefoxitin Sodium 2 gm/ (Dextrose) 50 mls @ 100 mls/hr IV Q6H [facility] Last Admin: 10/18/16 05:26 Dose: 100 mls/hr Potassium Chloride/Dextrose/Sod Cl (Dextrose 5%-1/2ns W/20meq Kcl) 1,000 mls @ 84 mls/hr IV .[id number] [facility] Last Admin: 10/18/16 05:04 Dose: Not Given Lorazepam (Ativan) 0.5 mg PO Q8HP PRN PRN Reason: ANXIETY/SEDATION Magnesium Hydroxide (Milk Of Magnesia) 30 ml PO DAILYP PRN PRN Reason: Constipation Olanzapine (Zyprexa) 7.5 mg PO DAILY@1600 [facility] Last Admin: 10/17/16 16:14 Dose: 7.5 mg Ondansetron HCl (Zofran) 4 mg IV Q6HP PRN PRN Reason: Nausea And Vomiting Pantoprazole Sodium (Protonix) 40 mg PO QAMAC [facility] Last Admin: 10/18/16 09:00 Dose: 40 mg Senna (Senokot) 2 tab PO HS [facility] Last Admin: 10/18/16 03:03 Dose: 2 tab Medical - PN: A/P - Time Spent With Patient Total time spent is greater than 50% in coordination of care (as documented) at patient's floor/unit and/or counseling patient: - Narrative A/P Narrative: A/P Dementia with psychosis: stable on Zyprexa, dose decreased to 7.5mg qdaily, and use prn ativan 0.5mg tid to help with outbursts. dose decreased to see if this helps with guideline recommendations for SNF placement. Patient can go back to home dose if patient is unable to find placement. UTI: s/p treatment, cultures neg, monitor Leucocytosis: Noted today on labs, s/p surgery, monitor for now, pt otherwise doing well. Failuire to thrive, : encourage oral intake, monitor. Gallstone disease: s/p cholecystetomy, Abdominal wall burn: likely 1st d eg, yesterday there was significant erythema, which has nearly resolved today, monitor. . DVT hep sq Diet regular fall precautions full code. Dispo: home vs SNF Medical - PN: Qual - VTE Deep Vein Thrombosis/Pulmonary Embolism Present on Admission: No
--- NOTE | 2016-10-18 10:55 | General Surgery Progress Note ---
Subjective Patient reports: feels better, pain is less, tolerating liquids well, afebrile Narrative: Note initiated : 10/18/16 at 10:53 am Service Date, if different from initiated Date: [] Patient: Kerrie Randolph 76 y/o F admitted on 10/14/16 for Weakness. Chief Complaint: [patient is status post laparoscopic cholecystectomy on yesterday. She is doing well. She had liquidsand will be advanced to a regular diet. Her abdominal exam is unremarkable. The erythema of her abdominal wall has almost resolved. She is stable for discharge home from a surgical standpoint. I will follow her up in the office in 2 weeks.] Objective Temp Pulse Resp BP Pulse Ox 98.4 F 105 H 20 117/74 97 10/18/16 07:34 10/18/16 00:00 10/18/16 07:34 10/18/16 07:34 10/18/16 07:34 - Additional Data Intake & Output - Last 24 hours: Intake & Output 10/16/16 10/17/16 10/18/16 10/19/16 05:59 05:59 05:59 05:59 Intake Total 03948 / 76018 2385 / 2385 2465 / 2465 765 / 765 Output Total 2024 / 202 1750 / 1750 1705 / 1705 375 / 375 Balance 9302 / 9302 635 / 635 760 / 760 390 / 390 Weight 167 lb 163 lb 163 lb - Labs 10/18/16 05:30 10/18/16 05:30 Diabetes panel 10/18/16 Range/Units 05:30 Sodium 137 (133-145) mmol/L Potassium 4.5 (3.3-5.1) mmol/L Chloride 103 (96-108) mmol/L Carbon Dioxide 21 L (22-30) mmol/L BUN 5 L (8-23) mg/dl Creatinine 0.6 (0.6-1.1) mg/dl Glucose 174 H (70-105) mg/dL Calcium 9.2 (8.6-10.4) mg/dl AST 19 (0-37) U/l ALT 37 (0-40) U/l Alkaline Phosphatase 97 (39-117) U/L Total Protein 6.3 (5.9-8.4) gm/dL Albumin 3.0 L (3.2-5.2) gm/dL Triglycerides 132 (<150) mg/dl Calcium panel 10/18/16 Range/Units 05:30 Calcium 9.2 (8.6-10.4) mg/dl Phosphorus 3.0 (2.7-4.5) mg/dL Albumin 3.0 L (3.2-5.2) gm/dL Pituitary panel 10/18/16 Range/Units 05:30 Sodium 137 (133-145) mmol/L Potassium 4.5 (3.3-5.1) mmol/L Chloride 103 (96-108) mmol/L Carbon Dioxide 21 L (22-30) mmol/L BUN 5 L (8-23) mg/dl Creatinine 0.6 (0.6-1.1) mg/dl Glucose 174 H (70-105) mg/dL Calcium 9.2 (8.6-10.4) mg/dl Adrenal panel 10/18/16 Range/Units 05:30 Sodium 137 (133-145) mmol/L Potassium 4.5 (3.3-5.1) mmol/L Chloride 103 (96-108) mmol/L Carbon Dioxide 21 L (22-30) mmol/L BUN 5 L (8-23) mg/dl Creatinine 0.6 (0.6-1.1) mg/dl Glucose 174 H (70-105) mg/dL Calcium 9.2 (8.6-10.4) mg/dl Total Bilirubin 0.4 (0.0-1.0) mg/dL AST 19 (0-37) U/l ALT 37 (0-40) U/l Alkaline Phosphatase 97 (39-117) U/L Total Protein 6.3 (5.9-8.4) gm/dL Albumin 3.0 L (3.2-5.2) gm/dL Assessment and Plan (1) Cholelithiasis and cholecystitis without obstruction Status: Acute Assessment and plan: stable for discharge home from surgery standpoint. She is to follow-up with me in the office in 2 weeks. Current Visit: Yes (2) Dementia Status: Acute Current Visit: No (3) Psychosis Status: Acute Current Visit: No - Time Spent With Patient Total time spent is greater than 50% in coordination of care (as documented) at patient's floor/unit and/or counseling patient:
--- NOTE | 2016-10-18 12:19 | Discharge Summary ---
Medical - DS: Prov Patient information: Note initiated : 10/18/16 at 12:16 pm Service Date, if different from initiated Date: [] Patient: Kerrie Randolph 76 y/o F admitted on 10/14/16 for Weakness. Chief Complaint: [] Date of admission: 10/14/16 21:56 Discharge date: 10/18/16 Primary care physician: PCP No Admitting clinician: Yo Godwin Consults: 10/16/16 11:10 Consult to Physician [CONS] Routine Comment: 3cm gall stone, poor appetitie. Consulting Provider: Angie Mahoney Reason For Exam: Physician to Consult 10/16/16 12:05 Consult to Physician [CONS] Routine Comment: Consulting Provider: [facility] Reason For Exam: Physician to Consult Discharging clinician: Yo Godwin Medical - DS: Meds - Discharge Medications Active and Home Medications: Home Medications OLANZapine [Zyprexa Zydis] 5 mg PO PRN PRN #14 tab.rapdis 09/18/16 [Rx Confirmed 10/14/16 Last Taken Unknown] OLANZapine [Zyprexa] 10 mg PO DAILY@1600 #30 tablet 09/18/16 [Rx Confirmed 10/14 Last Taken Unknown] Medical - DS: Hosp Hospital course: Mr. Randolph is a 76 year old female with h/o dementia with psychosis presented to the hospital with failure to thrive, and not eating and drinking well. There was a concern for UTI, however she was treated for UTI, with normal UA during this admission, CXR was clear The patient had abnl LFt and there fore underwent a USG gallbladder, which showed that she had a large stone in the gall bladder, Given her mental status, dementia, it was felt that she was unable to express her symptoms well. The patient did note once that her stomach hurts whenever she tries to eat something, which is likely the reason why she was not eating. General surgery consulted, patient underwent a cholecystectomy successfully. Today the patient is doing well, tolerating po and seems to be near baseline. She will be discharged back home with her who has arranged for additional help at home. The patient will resume her home dose of olanzapine and follow up with her PCP for further management. She will be seen by surgery in 2 weeks for post op follow up. Discharge diagnosis: Failure to thrive, Gallstone Disease. - Time Spent with Patient Total time spent providing and/or coordinating discharge services: Greater than 30 minutes Medical - DS: Exam - Constitutional Vitals: Vital Signs Temp Pulse Resp BP Pulse Ox 10/18/16 11:38 98.2 F 16 114/77 94 10/18/16 07:34 98.4 F 20 117/74 97 10/18/16 04:00 18 10/18/16 00:00 99.0 F H 105 H 93 H 143/82 93 10/17/16 20:00 97.9 F 73 20 98/63 94 10/17/16 17:03 97.5 F 99 H 16 147/90 95 10/17/16 16:26 95 10/17/16 15:40 112/73 98 10/17/16 15:10 108/69 92 10/17/16 14:50 102/62 91 10/17/16 14:35 96.6 F L 91 10/17/16 14:20 117/67 98 10/17/16 14:06 97.7 F 76 16 149/86 96 10/17/16 13:56 78 13 91/46 96 10/17/16 13:48 78 14 105/52 98 10/17/16 13:40 79 12 100/57 100 10/17/16 13:30 79 14 102/55 99 10/17/16 13:25 79 14 113/62 98 10/17/16 13:20 80 16 93/56 99 10/17/16 13:15 97.9 F 87 16 113/66 97 Intake and Output 10/17/16 10/18/16 10/18/16 21:59 05:59 13:59 Intake Total 585 / 585 680 / 680 765 / 765 Output Total 528 / 528 1100 / 1100 375 / 375 Balance 57 / 57 -420 / -420 390 / 390 Intake: IV 485 / 485 200 / 200 665 / 665 Dextrose 5%-1/2Ns W/20Meq 335 / 335 0 / 0 665 / 665 KCl 1,000 ml @ 84 mls/hr IV .[id number] [facility] Rx#: [id number] Mefoxin 2 gm In Dextrose 50 / 50 100 / 100 5% in Water 50 ml @ 100 mls/hr IV Q6H [facility] Rx#: [id number] Oral 100 / 100 480 / 480 100 / 100 Output: Urine Catheter Amount 25 / 25 Void Amount 500 / 500 1100 / 1100 375 / 375 # of times incontinent of 3 / 3 urine Other: Meal 4 oz jello, few sips of chicken broth # Voids 75 1 Weight 163 lb Additional comments: Constitutional; Afebrile, cooperative, alert, not in distress. Eyes- No icterus, , No periorbital swelling Ears- Ext ear normal, hearing normal to conversation. Neck- Midline trachea, supple Respiratory system: Air Entry equal on both sides, No crackles or wheezing, no rhonchi. CVS- Rate rhythm regular, S1,S2 heard, no gallop, no rub. Abdomen- Soft nontender abdomen, no organomegaly, no tenderness, no guarding or rigidity few areas of erythema noted, much improved from yesterday. 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 Medical - DS: Data Labs on day of discharge: Labs from last 24 hours 10/18/16 10/18/16 05:30 05:30 WBC 12.6 H RBC 4.04 Hgb 12.1 Hct 35.9 L MCV 88.9 MCH 30.1 MCHC 33.9 RDW 13.8 Plt Count 289 MPV 8.3 Gran % 86.5 H Lymph % (Auto) 8.8 L Payette % (Auto) 4.7 Eos % (Auto) 0 Baso % (Auto) 0 Gran # 10.9 H Lymph # 1.1 L Payette # 0.6 Eos # 0 Baso # 0 Sodium 137 Potassium 4.5 Chloride 103 Carbon Dioxide 21 L Anion Gap 13.0 BUN 5 L Creatinine 0.6 GFR Calculation 89 Glucose 174 H Uric Acid 4.2 Calcium 9.2 Phosphorus 3.0 Magnesium 1.7 Total Bilirubin 0.4 Direct Bilirubin < 0.2 GGT 94 H AST 19 ALT 37 Alkaline Phosphatase 97 Lactate Dehydrogenase 160 Total Protein 6.3 Albumin 3.0 L Globulin 3.3 Albumin/Globulin Ratio 0.9 L Triglycerides 132 Medical - DS: A/P - Patient/Caregiver Discharge Instructions Activity: increase activity as tolerated Diet: Regular Diet Additional Instructions: Follow up with PCP in 1-2 weeks Follow up with Dr Mahoney in 2 weeks Go to the ER if worsening symptoms, fever or any new concerning issue. - Follow up Plan Follow up with: Mary Gonzalez ARNP [Nurse Practitioner] - Angie Mahoney MD [Physician] - No,PCP [Primary Care Provider] - Disposition: Home Health Service Prognosis: Undetermined Rehab Potential: Undetermined I certify that the patient requires SNF services: No Overall status at discharge: patient is progressing back to baseline Medical - DS: Qual - VTE Deep Vein Thrombosis/Pulmonary Embolism Present on Admission: No
--- NOTE | 2016-10-21 15:17 | Surgical Pathology Report ---
HISTOLOGY SPECIMEN MICROSCOPIC DIAGNOSIS GALLBLADDER, CHOLECYSTECTOMY: -- CHRONIC CHOLECYSTITIS WITH CHOLELITHIASIS. -- CHOLESTEROLOSIS. (SE:ericka) PROCEDURAL IMPRESSION Cholelithiasis; cholecystitis. GROSS DESCRIPTION Received in formalin labeled gallbladder, is a 7.5 x 3.6 x 3.0 cm pink-purple gallbladder. The serosa is smooth and glistening with approximately 50% roughened and brown-zamora. There are multiple metal clamps present, two of which are on the cystic duct. The mucosa is pink-zamora and velvety with a white-zamora mesh-like overlay present on the majority of the serosa. The wall is up to 0.2 cm thick. There are not lesions or masses identified on the serosa. There is a single 2.5 cm in greatest dimension yellow-zamora smooth stone present within the gallbladder. Snow Removal/Plowing sections are submitted in one cassette. (KGW:adj) Electronically Signed by: Batsheva Tomlin D.O.
--- NOTE | 2016-10-22 16:16 | Operative Note ---
DATE OF OPERATION: 10/17/2016 PREOPERATIVE DIAGNOSIS: Cholelithiasis with cholecystitis. POSTOPERATIVE DIAGNOSIS: Cholelithiasis with cholecystitis. PROCEDURE: Laparoscopic cholecystectomy. SURGEON: Angie Mahoney MD. FINDINGS: Inflamed gallbladder with large stones. DESCRIPTION OF PROCEDURE: Under general anesthesia, the patient's abdomen was prepped and draped in the sterile field. A timeout procedure was carried out as per protocol. Supraumbilical midline incision was made and Veress needle was inserted. Abdomen was insufflated with 2.5 liters of CO2. A 12 mm port was placed uneventfully. Laparoscope was placed. A very inflamed gallbladder with stones was noted. Under videoscopic guidance, a 12 mm port and two 5 mm ports were placed in the right subcostal region. The gallbladder was grasped and positioned. Cystic duct was dissected and followed back to the gallbladder. Cystic artery branch was dissected and followed onto the wall of the gallbladder. Cystic artery branches were clipped with four clips each and divided. Cystic duct was then clipped with five clips and divided close to the gallbladder. Using electrocautery, the gallbladder was from the infrahepatic bed. The gallbladder was placed in an Endopouch and retrieved. Irrigation was carried out. There was minimal bleeding. There was no bile leak. CO2 was allowed to escape from the abdomen, and the ports were removed. Fascia at the umbilicus was closed with 0 Vicryl. Skin incisions were closed with anne-marie. Dressings were placed. The patient tolerated the procedure well. She was awakened from anesthesia uneventfully, transferred to a bed and taken to the postanesthetic care unit in satisfactory condition. LCS:arvind Job ID: [id number] Doc ID: [id number] Angie Mahoney M.D.
== END 2016-10-18 14:50 | disposition home health service (06) ==
LOC: ED 17:24 → MEDSUR 17:24
PROVIDERS: ADMIT Internal Medicine; ATTEND Internal Medicine